=== PATIENT | female | born 1965 | race Caucasian/White ===

== ENCOUNTER 2017-06-13 02:34 | Outpatient (CLI) | payer BC ==
[~2017-06-13 02:34] MED LIST: CARV-50 PO; COU4T PO; FURO80TA87 PO; LISI40TA4 PO; TRAM50TA2 PO
== END 2017-06-13 23:59 | disposition home or self-care (01) ==
LOC: DIABETIC 02:34
PROVIDERS: ATTEND Internal Medicine Interventional Cardiology
DX: E66.01 Morbid (severe) obesity due to excess calories (principal); R03.0 Elevated blood-pressure reading, without diagnosis of hypertension; I50.9 Heart failure, unspecified
CPT/HCPCS: 97802

== ENCOUNTER 2018-07-09 13:23 | Emergency (ER) | payer BC ==
[~2018-07-09] VITALS: Ht 167.6 cm; Wt 154.6 kg
[2018-07-09 13:40] VITALS: BP 186/98
[2018-07-09] MEDS ORDERED: ondansetron 4mg rapidly disintigrating tab PO ONE (17:05)
[2018-07-09] MEDS ORDERED: ketorolac tromethamine 15mg/ml inj. IM ONE (17:05)
[2018-07-09 17:10] LABS: CLARITY,URINE CLEAR (Clear); COLOR,URINE YELLOW (Yellow); GLUCOSE, URINE NEGATIVE (Neg); KETONES,URINE NEGATIVE (Neg); LEUKOCYTE ESTERASE ,URINE NEGATIVE (Neg); NITRITES, URINE NEGATIVE (Neg); OCCULT BLOOD,URINE NEGATIVE (Neg); PROTEIN,URINE NEGATIVE (Neg); UROBILINOGEN,URINE 0.2 E.U/dL (0.2-1.0)
[2018-07-09 17:15] LABS: UA COLLECTION TYPE CLN CATCH MIDSTREAM
[2018-07-09] MEDS ORDERED: NAPR-56 PO (17:43)
[2018-07-09] MEDS ORDERED: CYCL-1 PO (17:43)
== END 2018-07-09 17:58 | disposition home or self-care (01) ==
LOC: ER 13:23
DX: S39.012A Strain of muscle, fascia and tendon of lower back, initial encounter (principal); R11.2 Nausea with vomiting, unspecified; I11.0 Hypertensive heart disease with heart failure; I50.9 Heart failure, unspecified; Z88.0 Allergy status to penicillin; Z88.2 Allergy status to sulfonamides; Z91.013 Allergy to seafood; Z79.01 Long term (current) use of anticoagulants; Z79.899 Other long term (current) drug therapy; X58.XXXA Exposure to other specified factors, initial encounter; Y93.89 Activity, other specified; Y92.89 Other specified places as the place of occurrence of the external cause; Y99.8 Other external cause status
CPT/HCPCS: 81003; 96372; 99283; J1885

== ENCOUNTER 2024-12-08 15:29 | Inpatient (IN) | payer BC, MEDICAID ==
[~2024-12-08] VITALS: Ht 167.6 cm; Wt 139.6 kg
[~2024-12-08 15:29] MED LIST changes: +CYCL-1 PO; +LISI40TA20 PO; -LISI40TA4 PO
--- NOTE | 2024-12-08 15:39 | ELECTROCARDIOGRAPH REPORT ---
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
--- NOTE | 2024-12-08 15:46 | Physician Documentation ---
History of Present Illness ~ Chief Complaint: Weakness Stated Complaint: WEAKNESS Time Seen by MD: 15:39 OK to notify your PCP?: Yes Primary Medical Doctor: ARLENE Source: patient, EMS, EMS notes reviewed Mode of Arrival: EMS Exam Limitations: no limitations HPI Chief Complaint: Generalized weakness, shortness for breath Caveat: None Independent Historians: Paramedics History of Present Illness: Patient is a 59-year-old woman with known atrial fibrillation comes in complaining of generalized weakness, dizziness and shortness a breath that has gotten progressively worse over the last three days. Patient was discharged from [facility] as an inpatient this last Friday. She had several medication changes including discontinuation of her amiodarone. Patient denies any chest pain. Patient is found to be in rapid atrial fibrillation with a heart rate in the 140s. Patient is followed by Dr. Galvez. Review of systems: All systems were reviewed and are negative except for what is indicated in the history of present illness. Past Medical History: Atrial fibrillation Past Surgical History: Social History: Medications: Reviewed as documented Nursing Notes Allergies: Reviewed as documented in Nursing Notes Medication Reconciliation Allergies: Coded Allergies: Penicillins (Verified Allergy, Severe, ANAPHYLAXIS, 05/09/15) Sulfa (Sulfonamide Antibiotics) (Verified Allergy, Severe, ANAPHYLAXIS, 05/09/15) cephalexin (Verified Allergy, Severe, ANAPHYLAXIS, 05/09/15) shellfish derived (Verified Allergy, Severe, 05/09/15) Scheduled Apixaban (Eliquis), 1 TAB PO BID, (Reported) Carvedilol (Carvedilol), 1 TAB PO BID, (Reported) Empagliflozin (Jardiance), 1 TAB PO DAILY, (Reported) Furosemide (Furosemide), 1 TAB PO DAILY, (Reported) Potassium Chloride (Klor-Con), 1 TAB PO DAILY, (Reported) Scheduled PRN Albuterol Sulfate/Budesonide (Airsupra 90-80 Mcg Inhaler), 2 PUFF IH Q4H PRN for SOB or wheezing, (Reported) Discontinued Medications Carvedilol* (Coreg*), 2 TABLET PO BID, (Reported) Discontinued Reason: patient no longer taking Cyclobenzaprine* (Cyclobenzaprine*), 1 TABLET PO NIGHTLY PRN for muscle spasms Discontinued Reason: patient no longer taking Furosemide* (Lasix*), 40 MG PO BID, (Reported) Discontinued Reason: patient no longer taking Lisinopril* (Lisinopril*), 10 MG PO BID, (Reported) Discontinued Reason: patient no longer taking Tramadol Hcl (Tramadol Hcl), 1-2 TABLET PO TID, (Reported) Discontinued Reason: patient no longer taking Warfarin Sodium* (Coumadin*), 1 TABLET PO DAILY, (Reported) Discontinued Reason: patient no longer taking Past Medical History Past Medical History: Congestive Heart Failure, Hypertension Past Surgical History: noncontributory Alcohol Use: None Drug Use: none Lives In: Home Review of Systems All Other Systems at this time: Reviewed and Negative ROS Patient denies any other acute symptoms other than above. All other systems are negative Physical Exam Vital Signs: RN Vital Signs have been reviewed: Yes, Temperature: 98.0, Source: Oral, Heart Rate: 148, Respiratory Rate: 21, BP: 161/103, Pulse Oximetry: 98, Weight: 145.000 Oxygen Flow Rate: 0 Physical Exam General Appearance: MODERATE DISTRESS, ACUTELY AND CHRONICALLY ILL-APPEARING, MORBIDLY OBESE HEENT: Normal OP, moist oral mucosa, PERRL, EOMI Neck: supple, normal ROM, trachea midline Pulmonary: TACHYPNEIC, UNABLE TO SPEAK IN FULL SENTENCES, CTA, BS equal Cardiac: TACHYCARDIC, IRREGULARLY IRREGULAR RHYTHM, no murmur, rub or gallop, GI: nondistended, soft, nontender, normal bowel sounds, no guarding, no rebound Extremities: normal ROM, no swelling, non-tender Skin: intact, dry, warm, no rashes Neuro: AAOx3, speech is clear, no focal motor weakness Psych: normal affect, good eye contact, no apparent hallucination, normal speech Progress Results/Orders Results/Orders Orders - RADHIKA CHAUDHARY MD Chest,Single View (12/08/24 15:35) Monitor (12/08/24 15:35) Saline Lock (12/08/24 15:35) Oxygen (12/08/24 15:35) Hs Troponin I W Calculations (12/08/24 17:35) Hs Troponin I W Calculations (12/08/24 18:35) Page Hospitalist (12/08/24 16:37) Fill Out Med Reconciliation (12/08/24 16:37) Completed Orders - RADHIKA CHAUDHARY MD Chest,Single View (12/08/24 15:35) Cbc/Diff (12/08/24 15:35) PBNP (12/08/24 15:35) Electrocardiogram (12/08/24 15:35) Hs Troponin I W Calculations (12/08/24 15:35) CMP (12/08/24 15:40) Propofol Inj (Diprivan Inj) (12/08/24 16:13) Electrocardiogram (12/08/24 16:34) Vital Signs 12/08/24 12/08/24 12/08/24 12/08/24 15:32 15:57 16:10 16:29 Temp 98.0 98.0 Pulse 148 143 126 Resp 21 16 18 24 B/P (MAP) 161/103 131/90 (104) 156/93 Pulse Ox 98 99 99 O2 Flow Rate 0 0 12/08/24 12/08/24 12/08/24 12/08/24 16:33 16:40 16:42 17:12 Pulse 88 83 82 84 Resp 29 26 11 10 B/P (MAP) 129/86 (100) 128/95 (106) 142/103 (116) Pulse Ox 97 98 96 98 O2 Delivery Room Air Nasal Cannula Room Air O2 Flow Rate 2.0 2.0 Laboratory Tests Test 12/08/24 15:51 12/08/24 17:50 White Blood Count 13.6 H Red Blood Count 5.01 Hemoglobin 14.4 Hematocrit 42.9 Mean Corpuscular Volume 85.7 Mean Corpuscular Hemoglobin 28.8 Mean Corpuscular Hemoglobin Concent 33.6 Red Cell Distribution Width 17.0 H Platelet Count 284 Mean Platelet Volume 8.4 Neutrophils (%) (Auto) 65.9 Lymphocytes (%) (Auto) 24.5 Monocytes (%) (Auto) 7.7 Eosinophils (%) (Auto) 0.9 Basophils (%) (Auto) 1.0 Neutrophils # (Auto) 9.0 H Lymphocytes # (Auto) 3.3 Monocytes # (Auto) 1.1 H Eosinophils # (Auto) 0.1 Basophils # (Auto) 0.1 CBC Comment Sodium Level 136 Potassium Level 4.6 Chloride Level 101 Carbon Dioxide Level 22.3 L Anion Gap 13 Blood Urea Nitrogen 37 H Creatinine 1.29 H Estimated GFR/1.73 m2 42 BUN/Creatinine Ratio 28.7 H Glucose Level 108 H Calcium Level 9.3 Total Bilirubin 2.1 H Aspartate Amino Transf (AST/SGOT) 40 H Alanine Aminotransferase (ALT/SGPT) 492 H Alkaline Phosphatase 91 Troponin I High Sensitivity 33 Pro-B-Type Natriuretic Peptide 23074 H Total Protein 6.7 Albumin 3.7 Globulin 3.0 Albumin/Globulin Ratio 1.2 Chemistry Comments Medical Decision Making Additional info obtained from: old records (No prior visits or medical records to review), family Findings Differential diagnosis includes but is not limited to: Acute coronary syndrome, congestive heart failure, atrial fibrillation, electrolyte abnormalities EKG independent interpretation: Performed at 3:36 p.m.. Atrial fibrillation, heart rate 128, leftward axis, LVH, incomplete right bundle-branch block Repeat EKG independent interpretation: Performed at 4:34 p.m.. Normal sinus rh ythm, heart rate 87, nonspecific IVCD, nonspecific ST segments Chest x-ray, single view, indication: Shortness a breath Independent interpretation: Cardiomegaly, pulmonary vascular congestion, normal mediastinum Laboratory data independent interpretation: CBC: Leukocytosis of 13.6 CMP: BUN and creatinine elevated at 37 and 1.29 respectively, elevated LFTs- total bili 2.1, AST 40, ALT 492 First troponin: 33 Pro BNP: 79104 Urinalysis: Emergency department course/medical decision-making: Patient presents with rapid atrial fibrillation. Patient is also having congestive heart failure. Case discussed with Dr. Funmi Galvez. He agrees with synchronized cardioversion. Patient was also scheduled as synchronized cardioversion at the end of the month with Dr. Galvez. Patient is provided written consent and verbal consent for procedural sedation using propofol for synchronized cardioversion. Patient tolerated the procedure well in his in now normal sinus rhythm. Consultation/communications: 5:45 p.m.: Case discussed with our resident hospitalist. He will evaluate the patient for admission. Departure Time of Disposition: 17:45 Disposition: 09 ADMITTED INPATIENT Admission Level of Care: PCU with Tele Impression: Primary Impression: Atrial fibrillation with rapid ventricular response Additional Impression: Acute congestive heart failure Qualified Codes: I50.9 - Heart failure, unspecified Referrals: NO PRIMARY CARE PROVIDER (PCP) Education Educated: Patient, Family Educated regarding: diagnosis, treatment Signature Scribe Signature: No scribe Attestation: No scribe RADHIKA CHAUDHARY MD Dec 08, 2024 15:46
--- NOTE | 2024-12-08 16:12 | RADIOLOGY REPORT ---
CHEST RADIOGRAPH Indication: CP Technique: Single frontal view of the chest was obtained COMPARISON: None FINDINGS: Lines and Tubes: None Lungs: Clear Pleura: No effusion. No pneumothorax. Cardiomediastinal contours: Cardiomegaly Bones: Unremarkable IMPRESSION: Cardiomegaly
[2024-12-08 16:22] LABS: MEAN PLATELET VOLUME 8.4 FL (7.4-10.4)
[2024-12-08 16:24] LABS: RED CELL DISTRIBUTION WIDTH 17.0 % (11.5-14.5)
[2024-12-08 16:31] LABS: CREATININE 1.29 MG/DL (0.40-0.90); TOTAL CARBON DIOXIDE 22.3 MMOL/L (24-32); eCRCL 45 ML/MIN; eGFR 42 ML/MIN
[2024-12-08 16:38] LABS: PRO BRAIN NATRIURETIC PEPTIDE 14806 PG/ML (0-125)
[2024-12-08] MEDS: propofol 10mg/ml 20ml vial IV ONE (16:38)
[2024-12-08] MEDS ORDERED: CARV3.1244 PO (16:55)
[2024-12-08] MEDS ORDERED: ALBU10.7 IH (16:55)
[2024-12-08] MEDS ORDERED: POTA-192 PO (16:55)
[2024-12-08] MEDS ORDERED: APIX5TAB3 PO (16:55)
[2024-12-08] MEDS ORDERED: FURO40TA4 PO (16:55)
[2024-12-08] MEDS ORDERED: EMPA10TA PO (16:55)
--- NOTE | 2024-12-08 16:56 | ELECTROCARDIOGRAPH REPORT ---
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
[2024-12-08] MEDS ORDERED: ondansetron/PF 4mg/2ml inj IV PRN (18:05)
[2024-12-08] MEDS ORDERED: magnesium Cl slow-release 64mg tablet PO PRN (18:05)
[2024-12-08] MEDS ORDERED: magnesium sulf-water 2g/50mL 50 ML IV PRN (18:05)
[2024-12-08] MEDS ORDERED: mag hydrox/Alum hydrox/simeth 30ml oral suspension PO PRN (18:05)
[2024-12-08] MEDS ORDERED: potassium Cl 20 mEq SR tablet PO PRN ×2 (18:05)
[2024-12-08] MEDS ORDERED: potassium Cl 40MEQ/1/2NS 520ml 520 ML IV PRN (18:05)
[2024-12-08] MEDS ORDERED: magnesium sulf-water 4G/100mL 100 ML IV PRN (18:05)
[2024-12-08] MEDS ORDERED: magnesium hydroxide 30ml (MOM) UD suspension PO PRN (18:05)
[2024-12-08] MEDS: PERFLUTREN PROTEIN-A MICROSPHR (Optison) 0.22 MG/ML 3ML VIAL IV ONE (18:33)
[2024-12-08 18:38] LABS: PHOSPHORUS 4.8 MG/DL (2.3-4.5)
[2024-12-08 18:45] LABS: INR 1.9 INR
--- NOTE | 2024-12-08 18:49 | HISTORY AND PHYSICAL-Residence ---
History & Physical Providers to CC Resident Creating Document: WOOJOEY OLEARY, RES ~ History of Present Illness Primary Medical Doctor: ARLENE Reason for Admit\Complaint: shortness of breath History of Present Illness 59-year-old female Jahaira capellan with a past medical history of hypertension, CHF, has come to the ED complaining of generalized weakness. The patient was admitted in [facility] a week ago complaining of shortness of breath for which she was treated and discharged. She returned back again today for the same. Her SOB has been progressively increasing since the last three days. Today it got to a point where she was not able to do her activities of daily living. SOB associated with night sweats, PND, nausea, vomiting. Patient denied any complaints of chest pain, palpitations, headache, abdominal pain, hemoptysis, burning micturition. The patient when came into the ED was in atrial fibrillation, heart rate-150, BP-140s, was soon converted back into sinus rhythm by cardioversion. Allergies: Coded Allergies: Penicillins (Verified Allergy, Severe, ANAPHYLAXIS, 05/09/15) Sulfa (Sulfonamide Antibiotics) (Verified Allergy, Severe, ANAPHYLAXIS, 05/09/15) cephalexin (Verified Allergy, Severe, ANAPHYLAXIS, 05/09/15) shellfish derived (Verified Allergy, Severe, 05/09/15) Home Medications Home Medications Active Reported Klor-Con (Potassium Chloride) 10 Meq Tab.prt.sr 1 Tab PO DAILY Jardiance (Empagliflozin) 10 Mg Tablet 1 Tab PO DAILY Furosemide 40 Mg Tablet 1 Tab PO DAILY Airsupra 90-80 Mcg Inhaler (Albuterol Sulfate/Budesonide) 90 Mcg-80 Mcg/Actuation Hfa.aer.ad 2 Puff IH Q4H PRN Carvedilol 3.125 Mg Tablet 1 Tab PO BID Eliquis (Apixaban) 5 Mg Tablet 1 Tab PO BID Past Medical History Past Medical History Hypertension CHF Benign tumor of the thyroid Patient allergic to sulfa drugs, penicillins, shellfish. Past Surgical History Surgical History Comment Knee replacement surgery both knees Past Social History Social History Comment Patient quit smoking 15 years ago before which he smoked for 20 years one pack per day Started vaping six months ago but quit in the month of September Alcohol -drinks socially No illicit drug abuse FAMILY HISTORY- Mother-stroke, hypertension Father-stroke, hypertension Alcohol Use: None Drug Use: None Lives In: Home ROS All Other Systems: Reviewed and Negative Exam Vitals: Vital Signs Date Time Temp Pulse Resp B/P (MAP) Pulse Ox O2 Delivery O2 Flow Rate FiO2 12/08/24 17:12 84 10 142/103 (116) 98 12/08/24 16:42 Room Air 12/08/24 16:40 2.0 12/08/24 16:10 98.0 General: Constitutional: No fever, generalised weakness. no change in appetite/weight HEENT: No blurring of the vision, No sore throat, epistaxis, tinnitus Cardiovascular: No chest pain while examining, no palpitations, 2+ pedal edema present. Respiratory: sob present, cough present,no hemoptysis Gastrointestinal: nausea, vomiting. No abdominal pain, No diarrhea, constipation, melena. Genitourinary: No frquency, urgency, incontinence, nocturia. No dysuria, hematuria Musculoskeletal: No arthralgia, myalgia Endocrine: no polydipsia, polyuria. No heat or cold intolerance Neurologic: No headache, vertigo. No weakness, numbness or tingling of extremities Psychiatric: No hallucinations/delusions, no anhedonia, no suicidal ideation Hematologic: No bleeding or bruises Diagnostic Data Last Recorded Lab Results: 12/08/24 1551 12/08/24 1551 Diagnostic Data: Laboratory Tests Test 12/08/24 18:27 Prothrombin Time 18.0 SECONDS (9.0-12.0) H INR International Normalized Ratio 1.9 INR Coagulation Comments Advance Care Planning Advanced Care plannin - 30 Minutes (Full code) Additional Plan Acute exacerbation of congestive heart failure- Pro BNP elevated Ordered echocardiogram Patient on Lasix-furosemide 40 mg b.i.d. IV On GDMT protocol-spironolactone 12.5 mg p.o. daily, empagliflozin 10 mg p.o. daily, Entresto 0.5 b.i.d. p.o. Atrial fibrillation- Initially presented in AFib but was converted back into sinus rhythm With cardioversion by the ED physician. Dr. Galvez was informed Patient currently in sinus rhythm Eliquis 5 mg b.i.d. Carvedilol 3.125 mg b.i.d. 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 Condition improved, was maintaining normal saturations on room air without oxygen. UTI with underlying nonobstructive renal calculus- Urine analysis positive for UTI Recently detected with renal calculus for which she is being treated by her outpatient script coordinator. Patient on ciprofloxacin 400 mg b.i.d. Code Status: Full code DVT Prophylaxis: Eliquis Analgesia/Sedation: Acetaminophen Nutrition: Heart healthy diet PT: Ordered Prognosis: Guarded Disposition: Patient admitted for generalized weakness and AFib which was converted back into sinus rhythm by cardioversion. Patient on close telemetry monitoring Joey Moscoso MD Internal Medicine Resident PGY-1 Date of Service: Dec 09, 2024 Billing Provider: ELPIDIO MENDOZA MD,JOEY, RES Dec 08, 2024 18:49
[2024-12-08 19:48] LABS: CREATININE 1.26 MG/DL (0.40-0.90); eCRCL 46 ML/MIN; eGFR 44 ML/MIN
[2024-12-08] MEDS: docusate sod 100mg capsule PO SCH (20:00)
[2024-12-08] MEDS ORDERED: sacubitril/valsartan 24mg-26mg tablet PO SCH (20:00)
[2024-12-08] MEDS: K and/or MAG REPLACEMENT MC SCH (20:00)
[2024-12-08 21:44] LABS: UA COLLECTION TYPE VOIDED
[2024-12-08 21:50] VITALS: BP 129/93; PULSE 99; RESP 17; TEMP 97.9; O2SAT 99
[2024-12-08 21:53] LABS: MUCUS STRANDS FEW /LPF (Neg); SQUAMOUS EPITHELIAL CELL,UR FEW /LPF (FEW)
[2024-12-08 21:56] LABS: CREATININE,URINE RANDOM 152.0 MG/DL; UA UREA RANDOM 677.0 MG/DL
[2024-12-08 22:00] VITALS: BP 119/71; PULSE 67; RESP 19; TEMP 97.4; O2SAT 97
[2024-12-08] MEDS ORDERED: albuterol 2.5 MG/3 ML nebule NEB PRN (22:10)
[2024-12-08 22:16] VITALS: PULSE 97; RESP 22; O2SAT 99
[2024-12-08] MEDS: sacubitril/valsartan 24mg-26mg tablet PO SCH (23:09)
[2024-12-09] VITALS (10 sets, daily range): BP systolic 90–118; BP diastolic 58–81; PULSE 52–82; RESP 15–22; TEMP 97.1–98.5; O2SAT 95–98
[2024-12-09 06:14] LABS: MEAN PLATELET VOLUME 8.1 FL (7.4-10.4); RED CELL DISTRIBUTION WIDTH 17.0 % (11.5-14.5)
[2024-12-09 06:25] LABS: CHOL/HDL RATIO 3.9 (0.00-4.99); CREATININE 1.29 MG/DL (0.40-0.90); LDL CHOLESTEROL 88 MG/DL (50-100); TOTAL CARBON DIOXIDE 28.8 MMOL/L (24-32); eCRCL 45 ML/MIN; eGFR 42 ML/MIN
[2024-12-09] MEDS: EMPAGLIFLOZIN 10 MG TABLET PO SCH (08:29)
[2024-12-09] MEDS: ciprofloxacin lact 400MG/200ML 200 ML IV SCH (09:43)
--- NOTE | 2024-12-09 19:03 | PROGRESS NOTE- Residence ---
Progress Note - Resident Providers to CC Resident Creating Document: MARK SIMPSON IRAIDA ~ Antibiotic Timeout Antibiotic Ordered?: Yes Subjective Patient seen and examined at the bedside today. Patient reports that her breathing is better when compared to yesterday prior to her arrival in the ER. She currently denies any shortness of breath, chest pain, palpitations, nausea, vomiting. No acute overnight events reported. Objective Vital Signs Date Time Temp Pulse Resp B/P (MAP) Pulse Ox O2 Delivery O2 Flow Rate FiO2 12/09/24 15:00 98.4 74 18 90/58 (69) 97 Room Air 12/09/24 08:00 0 21 Result Diagram: 12/09/24 0542 12/09/2442 General: Morbidly obese female. No acute distress. HEENT: Conjunctiva pink, Sclera clear, Mucus Membranes moist. Neck: Supple without masses and tenderness. Resp: Unlabored. Coarse breath sounds heard. No wheezing or rhonchi heard. Heart: Regular Rate and rhythm, normal S1 and S2 without murmur, rub or gallop. Abdomen: Soft and non tender no organomegaly Extremities: Bilateral 1+ lower extremity edema present. Skin: Warm and dry. Psychiatric: Affect normal. Neurology: Cranial nerves 2-12 intact. No focal motor or sensory deficits. Coagulation Studies Laboratory Tests Test 12/08/24 18:27 Prothrombin Time 18.0 SECONDS (9.0-12.0) H INR International Normalized Ratio 1.9 INR Coagulation Comments Assessment Assessment 59-year-old female with past medical history of CHF, hypertension, AFib, PE, DVT presented to the ED with chief complaint of worsening shortness of with a. She is admitted in the hospital for the evaluation and management of AFib with RVR, acute exacerbation of congestive heart failure with reduced ejection fraction. Plan Plan Acute hypoxemic respiratory failure Acute exacerbation of congestive heart failure with a reduced ejection fraction NYHA class three, aha stage four Preliminary report of the patient's echocardiography shows an ejection fraction of 15-20%. Patient is started on IV Lasix 40 b.i.d. Strict input and output monitoring. The the patient's junior web developer Dr. Galvez has been consulted. Appreciate recommendations. Restarted on GDMT Entresto, Jardiance, carvedilol, spironolactone. The patient is comfortable on room air. Atrial fibrillation with rapid ventricular rate The patient underwent a cardioversion in the ER yesterday as per Dr. Peña's recommendation. She has a converted back to sinus rhythm. Occasional PVCs are noted on the telemetry monitoring. Continue telemetry. Restarted the patient on carvedilol 3.125 mg b.i.d.. Restarted Eliquis 5 mg p.o. b.i.d. UTI Hematuria Nephrolithiasis The patient reported that she has been having significant hematuria since September when she was started on Eliquis. She went to a urologist Dr. Guthrie last week in view of her renal stones. Per the patient Dr. Guthrie reported that she has a large stone and requires procedure but is not a suitable candidate in view of her low ejection fraction. Started the patient on IV ciprofloxacin 400 mg b.i.d.. The patient reports severe allergic reaction such as the swelling of her tongue and lips with cephalosporins. We will follow up with the urine cultures. The patient's hematuria has a improved significantly. We will continue to monitor closely. History of DVT and PE Restarted Eliquis 5 mg p.o. b.i.d. DIAMOND secondary to renal tubular stasis Started the patient on IV Lasix. We will closely monitor the patient's renal function. CODE STATUS: Full code DVT prophylaxis: Eliquis GI prophylaxis: None Diet: Heart healthy diet Disposition: Continue medical management. Anticipate discharge home in the next 24-48 hours. Mark Simpson MD Internal Medicine Resident, PGY-3 Date of Service: Dec 09, 2024 Billing Provider: ELPIDIO MENDOZA MD,MARK FAITH, RES Dec 09, 2024 19:03
[2024-12-10] VITALS (12 sets, daily range): BP systolic 92–111; BP diastolic 63–77; PULSE 57–80; RESP 13–24; TEMP 97.1–97.8; O2SAT 96–99
[2024-12-10 06:26] LABS: MEAN PLATELET VOLUME 8.1 FL (7.4-10.4); RED CELL DISTRIBUTION WIDTH 16.7 % (11.5-14.5)
[2024-12-10 06:54] LABS: CREATININE 0.98 MG/DL (0.40-0.90); TOTAL CARBON DIOXIDE 28.0 MMOL/L (24-32); eCRCL 59 ML/MIN; eGFR 58 ML/MIN
--- NOTE | 2024-12-10 09:21 | CARDIOLOGY REPORT ---
APPROVED REPORT EXAM: Comprehensive 2D, Doppler, and color-flow Echocardiogram. Patient Location: [facility] Blood Pressure: 112/81 mmHg Heart Rate: 76 bpm Indications Congestive Heart Failure Shortness of Breath Atrial Fibrillation ProBNP: 95023 BREAD JOCKEY: Kaela Galvez MD Previous ECHO: 10/04/24, [facility], EF: 10-15; mod RVE; mod MR; mod-sev TR; sev JOVANI 2D Dimensions LA Diam4.9 cm IVSd 1.5 (0.7-1.1cm) LVDd 6.6 cm PWd 1.3 (0.7-1.1cm) IVSs 1.5 (0.8-1.2cm) LVDs 6.0 (2.5-4.0cm) PWs 1.8 (0.8-1.2cm) LVOT Diameter 2.30 (1.8-2.4cm) LVEF(%) 18.2 (>50%) Ao Asc Diam.3.44 cm IVC 22.48 mmFS (%) 8.4 % SV 34.3 ml CO 2.7 L/min M-Mode Dimensions Left Atrium(MM) 4.71 (2.5-4.0cm) Aortic Root 3.60 (2.2-3.7cm) Aortic Cusp Exc 1.49 (1.5-2.0cm) MV EPSS 1.9 (<0.5cm) Aortic Valve AoV Peak Rishi. 154.2 cm/s AoV VTI 25.3 cm AO Peak GR. 9.5 mmHg AO Mean GR. 6 mmHg LVOT VTI 22.80 cm LVOT Peak Rishi. 118.8 cm/s JOSE C(VTI)/BSA 3.73 cm2/m2 JOSE C (VTI) 3.73 cm2 Mitral Valve MV E Velocity 93.0 cm/s MV Peak Gr. 4 mmHg MV DECEL TIME 156 ms MV A Velocity 29.2 cm/s MV PHT 60 ms E/A Ratio 3.2 MVA (PHT) 3.67 cm2 MV WFwa816.1 cm/s TDI Lateral E' P. V9.59 cm/s E/Lateral E' 9.7 Pulmonary Valve PAEDP14.20 mmHg Tricuspid Valve TR P. Velocity 320 cm/s RAP ESTIMATE 10 mmHg TR Peak Gr. 41 mmHg RVSP 51 mmHg LEFT VENTRICLE Left ventricle is moderately dilated with severely decreased function. Moderate concentric hypertroph y. LVEF is 15-20%. Unchanged from previous echo. RIGHT VENTRICLE Right ventricle is mild to moderately dilated with reduced function. Elevated right heart pressures w ith an RVSP of 51 mmHg. ATRIA Left atrium is moderately dilated. AORTIC VALVE Trileaflet AV appears mildly sclerotic without stenosis. Trace insufficiency. MITRAL VALVE Mitral valve leaflets are thickened with mild annular calcification. No stenosis. Mild regurgitation. TRICUSPID VALVE The tricuspid valve is normal in structure with mild to moderate regurgitation. PULMONIC VALVE The pulmonary valve is normal in structure with physiologic insufficiency. GREAT VESSELS The aortic root is normal in size. The ascending aorta is normal in size. IVC is dilated and collapse s less than 50% with inspiration. PERICARDIUM Normal pericardium. No effusion. Pleural effusion present. Other Information Study Quality: Adequate Conclusion Left ventricle is moderately dilated with severely decreased function. Moderate concentric hypertrop hy. LVEF is 15-20%. Unchanged from previous echo. Right ventricle is mild to moderately dilated with reduced function. Elevated right heart pressures with an RVSP of 51 mmHg. Left atrium is moderately dilated. Trileaflet AV appears mildly sclerotic without stenosis. Trace insufficiency. Mitral valve leaflets are thickened with mild annular calcification. No stenosis. Mild regurgitatio n. The tricuspid valve is normal in structure with mild to moderate regurgitation. Normal pericardium. No effusion.
--- NOTE | 2024-12-10 19:41 | PROGRESS NOTE- Residence ---
Progress Note - Resident Providers to CC Resident Creating Document: JOEY MOSCOSO RES ~ Antibiotic Timeout Antibiotic Ordered?: No Subjective Patient seen and examined at the bedside today. Patient reports of developing a rash on her body associated with itching and shivering, due to ciprofloxacin. reports that her breathing is better today . Does not complain of any shortness of breath, chest pain, palpitations, nausea, vomiting. Objective Vital Signs Date Time Temp Pulse Resp B/P (MAP) Pulse Ox O2 Delivery O2 Flow Rate FiO2 12/10/24 15:00 97.5 80 18 102/69 (80) 96 Room Air 12/10/24 08:13 0 21 Result Diagram: 12/10/2451912/10/24519 General: Morbidly obese female. No acute distress. HEENT: Conjunctiva pink, Sclera clear, Mucus Membranes moist. Neck: Supple without masses and tenderness. Resp: Unlabored. Coarse breath sounds heard. No wheezing or crepts heard. Heart: Regular Rate and rhythm, normal S1 and S2 without murmur, rub or gallop. Abdomen: Soft and non tender no organomegaly Extremities: Bilateral 1+ lower extremity edema present. Skin: Warm and dry with mild rash. Psychiatric: Affect normal. Neurology: Cranial nerves 2-12 intact. No focal motor or sensory deficits. Coagulation Studies Laboratory Tests Test 12/08/24 18:27 Prothrombin Time 18.0 SECONDS (9.0-12.0) H INR International Normalized Ratio 1.9 INR Coagulation Comments Assessment Assessment 59-year-old female with past medical history of CHF, hypertension, AFib, PE, DVT presented to the ED with chief complaint of worsening shortness of with a. She is admitted in the hospital for the evaluation and management of AFib with RVR, acute exacerbation of congestive heart failure with reduced ejection fraction. Plan Plan Acute hypoxemic respiratory failure Acute exacerbation of congestive heart failure with a reduced ejection fraction NYHA class three, aha stage four Preliminary report of the patient's echocardiography shows an ejection fraction of 15-20%. Patient is started on IV Lasix 40 b.i.d. Strict input and output monitoring. The patient's power bender operator Dr. Galvez has been consulted. Appreciate recommendations. Restarted on GDMT Entresto, Jardiance, carvedilol, spironolactone. The patient is comfortable on room air. Spirometry and flutter. Atrial fibrillation with rapid ventricular rate The patient underwent a cardioversion in the ER yesterday as per Dr. Peña's recommendation. She has a converted back to sinus rhythm. Occasional PVCs are noted on the telemetry monitoring. Continue telemetry. Restarted the patient on carvedilol 3.125 mg b.i.d.. Restarted Eliquis 5 mg p.o. b.i.d. Asymptomatic bacteriuria Hematuria Nephrolithiasis The patient reported that she has been having significant hematuria since September when she was started on Eliquis. She went to a urologist Dr. Guthrie last week in view of her renal stones. Per the patient Dr. Guthrie reported that she has a large stone and requires procedure but is not a suitable candidate in view of her low ejection fraction. Started the patient on IV ciprofloxacin 400 mg b.i.d., patient reports developing a skin rash with itching and shivering. Discontinued ciprofloxacin. The patient also reports severe allergic reaction such as the swelling of her tongue and lips with cephalosporins. Currently giving probiotics with fluid management. No antibiotics required. We will follow up with the urine cultures. The patient's hematuria has a improved significantly. We will continue to monitor closely. History of DVT and PE Restarted Eliquis 5 mg p.o. b.i.d. DIAMOND secondary to renal tubular stasis Started the patient on IV Lasix. We will closely monitor the patient's renal function. CODE STATUS: Full code DVT prophylaxis: Eliquis GI prophylaxis: None Diet: Heart healthy diet Disposition: Continue medical management. Discontinued the patient on ciprofloxacin as she developed rash itching and shivering. Anticipate discharge home in the next 24-48 hours. Joey Moscoso MD Internal Medicine Resident, PGY-1 Date of Service: Dec 10, 2024 Billing Provider: ELPIDIO MENDOZA MD,JOEY, RES Dec 10, 2024 19:41
[2024-12-10] MEDS: lactobacillus rhamnosus 10,000 MMU CELLS/CAPSULE PO SCH (19:42)
[2024-12-10 22:21] LABS: LEUKOCYTE ESTERASE ,URINE SMALL (Neg); NITRITES, URINE NEGATIVE (Neg); OCCULT BLOOD,URINE MODERATE (Neg)
[2024-12-10 22:28] LABS: UA COLLECTION TYPE NON-SPECIFIED
[2024-12-10 22:29] LABS: SQUAMOUS EPITHELIAL CELL,UR FEW /LPF (FEW)
[2024-12-10 22:30] LABS: WBC CLUMPS,URINE FEW /HPF (NEGATIVE)
[2024-12-11] VITALS (10 sets, daily range): BP systolic 86–106; BP diastolic 44–60; PULSE 61–72; RESP 11–20; TEMP 96.9–98.6; O2SAT 95–99
[2024-12-11 05:53] LABS: MEAN PLATELET VOLUME 7.8 FL (7.4-10.4); RED CELL DISTRIBUTION WIDTH 16.8 % (11.5-14.5)
[2024-12-11 06:09] LABS: CREATININE 0.95 MG/DL (0.40-0.90); TOTAL CARBON DIOXIDE 32.6 MMOL/L (24-32); eCRCL 60 ML/MIN; eGFR 60 ML/MIN
--- NOTE | 2024-12-11 17:11 | PROGRESS NOTE- Residence ---
Progress Note - Resident Providers to CC Resident Creating Document: JOEY MOSCOSO RES ~ Antibiotic Timeout Antibiotic Ordered?: No Subjective Patient seen and examined at the bedside today. Patient feels well, does not complain of any itching , shivering, reports that her breathing is better today . The patient is hypotensive however spironolactone was held and Entresto has been discontinued and the patient is started on low-dose lisinopril. No shortness of breath, chest pain, palpitations, nausea, vomiting. Objective Vital Signs Date Time Temp Pulse Resp B/P (MAP) Pulse Ox O2 Delivery O2 Flow Rate FiO2 12/11/24 08:07 72 16 95 Room Air* 0 21 12/11/24 02:00 97.8 86/44 (58) Result Diagram: 12/11/24 0512 12/11/24 05 General: Morbidly obese female. No acute distress. HEENT: Conjunctiva pink, Sclera clear, Mucus Membranes moist. Neck: Supple without masses and tenderness. Resp: Unlabored. Coarse breath sounds heard. No wheezing or crepts heard. Heart: Regular Rate and rhythm, normal S1 and S2 without murmur, rub or gallop. Abdomen: Soft and non tender no organomegaly Extremities: Bilateral 1+ lower extremity edema present. Skin: Warm and dry Psychiatric: Affect normal. Neurology: Cranial nerves 2-12 intact. No focal motor or sensory deficits. Coagulation Studies Laboratory Tests Test 12/08/24 18:27 Prothrombin Time 18.0 SECONDS (9.0-12.0) H INR International Normalized Ratio 1.9 INR Coagulation Comments Assessment Assessment 59-year-old female with past medical history of CHF, hypertension, AFib, PE, DVT presented to the ED with chief complaint of worsening shortness of with a. She is admitted in the hospital for the evaluation and management of AFib with RVR, acute exacerbation of congestive heart failure with reduced ejection fraction. Plan Plan Acute hypoxemic respiratory failure Acute exacerbation of congestive heart failure with a reduced ejection fraction NYHA class three, aha stage four Preliminary report of the patient's echocardiography shows an ejection fraction of 15-20%. Patient is started on IV Lasix 40 b.i.d. Strict input and output monitoring. The patient's auto body mechanic Dr. Galvez has been consulted. Appreciate recommendations. Restarted on GDMT Entresto, Jardiance, carvedilol, spironolactone. The patient is comfortable on room air. Spirometry and flutter. 12/11 spironolactone was held and Entresto was discontinued due to hypotension Atrial fibrillation with rapid ventricular rate Patient recording low blood pressures-stopped Entresto. Started on lisinopril 5 mg daily p.o. We will continue to monitor blood pressures regularly. The patient underwent a cardioversion in the ER yesterday as per Dr. Peña's recommendation. She has a converted back to sinus rhythm. Occasional PVCs are noted on the telemetry monitoring. Continue telemetry. Asymptomatic bacteriuria Hematuria Nephrolithiasis The patient reported that she has been having significant hematuria since September when she was started on Eliquis. She went to a urologist Dr. Guthrie last week in view of her renal stones. Per the patient Dr. Guthrie reported that she has a large stone and requires procedure but is not a suitable candidate in view of her low ejection fraction. Started the patient on IV ciprofloxacin 400 mg b.i.d., patient reports developing a skin rash with itching and shivering. Discontinued ciprofloxacin. The patient also reports severe allergic reaction such as the swelling of her tongue and lips with cephalosporins. Currently giving probiotics with fluid management. No antibiotics required. We will follow up with the urine cultures. The patient's hematuria has a improved significantly. We will continue to monitor closely. History of DVT and PE Restarted Eliquis 5 mg p.o. b.i.d. DIAMOND possibly secondary to renal tubular stasis Started the patient on IV Lasix. We will closely monitor the patient's renal function. CODE STATUS: Full code DVT prophylaxis: Eliquis GI prophylaxis: None Diet: Heart healthy diet Disposition: Continue medical management. Patient is recording low blood pressures, stopped Entresto and started on low-dose lisinopril. Anticipate discharge home in the next 24-48 hours. Joey Moscoso MD Internal Medicine Resident, PGY-1 Date of Service: Dec 11, 2024 Billing Provider: TIKA MILLS DO Common Visit Codes: [id number] INP/OBS CARE(HIGH) JOEY MOSCOSO, RES Dec 11, 2024 17:11 TIKA MILLS DO Dec 11, 2024 19:22
[2024-12-12] VITALS (8 sets, daily range): BP systolic 99–118; BP diastolic 50–74; PULSE 65–69; RESP 13–21; TEMP 97–98.4; O2SAT 96–100
[2024-12-12 06:09] LABS: MEAN PLATELET VOLUME 7.9 FL (7.4-10.4); RED CELL DISTRIBUTION WIDTH 16.6 % (11.5-14.5)
[2024-12-12 06:26] LABS: CREATININE 0.77 MG/DL (0.40-0.90); TOTAL CARBON DIOXIDE 31.2 MMOL/L (24-32); eCRCL 75 ML/MIN; eGFR 77 ML/MIN
--- NOTE | 2024-12-12 17:32 | PROGRESS NOTE- Residence ---
Progress Note - Resident Providers to CC Resident Creating Document: JOEY MOSCOSO RES ~ Antibiotic Timeout Antibiotic Ordered?: No Subjective Patient seen and examined at the bedside today. Patient feels well, does not complain of any itching , shivering, reports that her breathing is better today . The patient is hypotensive however spironolactone was held and Entresto has been discontinued and the patient is started on low-dose lisinopril. No shortness of breath, chest pain, palpitations, nausea, vomiting. Objective Vital Signs Date Time Temp Pulse Resp B/P (MAP) Pulse Ox O2 Delivery O2 Flow Rate FiO2 12/12/24 15:00 98.1 65 21 106/50 (68) 97 Room Air 12/11/24 23:19 24 12/11/24 08:07 0 Result Diagram: 12/12/24 0535 12/12/24 0535 General: Morbidly obese female. No acute distress. HEENT: Conjunctiva pink, Sclera clear, Mucus Membranes moist. Neck: Supple without masses and tenderness. Resp: Unlabored. Coarse breath sounds heard. No wheezing or crepts heard. Heart: Regular Rate and rhythm, normal S1 and S2 without murmur, rub or gallop. Abdomen: Soft and non tender no organomegaly Extremities: Bilateral 1+ lower extremity edema present. Skin: Warm and dry Psychiatric: Affect normal. Neurology: Cranial nerves 2-12 intact. No focal motor or sensory deficits. Coagulation Studies Laboratory Tests Test 12/08/24 18:27 Prothrombin Time 18.0 SECONDS (9.0-12.0) H INR International Normalized Ratio 1.9 INR Coagulation Comments Assessment Assessment 59-year-old female with past medical history of CHF, hypertension, AFib, PE, DVT presented to the ED with chief complaint of worsening shortness of with a. She is admitted in the hospital for the evaluation and management of AFib with RVR, acute exacerbation of congestive heart failure with reduced ejection fraction. Plan Plan Acute hypoxemic respiratory failure Acute exacerbation of congestive heart failure with a reduced ejection fraction NYHA class three, aha stage four Preliminary report of the patient's echocardiography shows an ejection fraction of 15-20%. Patient is started on IV Lasix 40 b.i.d. Strict input and output monitoring. The patient's drug safety scientist Dr. Galvez has been consulted. Appreciate recommendations. The patient is comfortable on room air. Spirometry and flutter. 12/11 spironolactone was held and Entresto was discontinued due to hypotension 12/12- patient not on spironolactone and Entresto. We will continue to monitor her blood pressure. Atrial fibrillation with rapid ventricular rate We will continue to monitor blood pressures regularly. The patient underwent a cardioversion in the ER yesterday as per Dr. Peña's recommendation. She has a converted back to sinus rhythm. Occasional PVCs are noted on the telemetry monitoring. Continue telemetry. Asymptomatic bacteriuria Hematuria Nephrolithiasis The patient reported that she has been having significant hematuria since September when she was started on Eliquis. She went to a urologist Dr. Guthrie last week in view of her renal stones. Per the patient Dr. Guthrie reported that she has a large stone and requires procedure but is not a suitable candidate in view of her low ejection fraction. Started the patient on IV ciprofloxacin 400 mg b.i.d., patient reports developing a skin rash with itching and shivering. Discontinued ciprofloxacin. The patient also reports severe allergic reaction such as the swelling of her tongue and lips with cephalosporins. Currently giving probiotics with fluid management. No antibiotics required. We will follow up with the urine cultures. The patient's hematuria has a improved significantly. We will continue to monitor closely. History of DVT and PE Restarted Eliquis 5 mg p.o. b.i.d. DIAMOND possibly secondary to renal tubular stasis Started the patient on IV Lasix. We will closely monitor the patient's renal function. CODE STATUS: Full code DVT prophylaxis: Eliquis GI prophylaxis: None Diet: Heart healthy diet Disposition: Continue medical management. Patient is recording low blood pressures, stopped Entresto and started on low-dose lisinopril. Anticipate discharge home in the next 24-48 hours. Joey Moscoso MD Internal Medicine Resident, PGY-1 Date of Service: Dec 12, 2024 Billing Provider: TIKA MILLS DO Common Visit Codes: [id number] INP/OBS CARE(HIGH) JOEY MOSCOSO, RES Dec 12, 2024 17:32 TIKA MILLS DO Dec 12, 2024 20:09
[2024-12-13 02:00] VITALS: BP 121/75; PULSE 90; RESP 18; TEMP 97.8; O2SAT 97
[2024-12-13 06:00] VITALS: BP 139/69; PULSE 69; RESP 20; TEMP 97.8; O2SAT 98
[2024-12-13 06:15] LABS: MEAN PLATELET VOLUME 7.6 FL (7.4-10.4); RED CELL DISTRIBUTION WIDTH 16.6 % (11.5-14.5)
[2024-12-13 06:47] LABS: CREATININE 0.76 MG/DL (0.40-0.90); TOTAL CARBON DIOXIDE 29.9 MMOL/L (24-32); eCRCL 76 ML/MIN; eGFR 78 ML/MIN
[2024-12-13 08:00] VITALS: RESP 18; O2SAT 98
[2024-12-13 08:19] VITALS: PULSE 70; RESP 24; O2SAT 94
[2024-12-13] MEDS ORDERED: LISI5TAB22 PO (11:17)
[2024-12-13] MEDS ORDERED: SPIR25TA PO (11:17)
[2024-12-13 11:21] VITALS: BP_SYST 106; PULSE 67
[2024-12-13] MEDS ORDERED: ALBU10.7 IH (16:22)
[2024-12-13] MEDS ORDERED: EMPA10TA PO (16:22)
[2024-12-13] MEDS ORDERED: COR3.125T PO (16:22)
[2024-12-13] MEDS ORDERED: APIX5TAB3 PO (16:22)
[2024-12-13] MEDS ORDERED: FURO40TA4 PO (16:22)
--- NOTE | 2024-12-13 18:44 | DISCHARGE SUMMARY-Residence ---
Discharge Summary Providers to CC Resident Creating Document: QUINNSAMUELFunmi FLOREZ, RES ~ Discharge Summary Admission Diagnosis: Acute exacerbation of CHF, AFib with RVR Hospital Course DATE OF ADMISSION: DATE OF DISCHARGE: Condition on DC: Stable Discharge Summary: Laboratory Tests Test 12/12/24 05:35 12/13/24 05:11 White Blood Count 9.0 X10'3 7.7 X10'3 Red Blood Count 4.76 X10'6 4.74 X10'6 Hemoglobin 13.4 g/dl 13.4 g/dl Hematocrit 40.8 % 40.6 % Mean Corpuscular Volume 85.7 FL 85.7 FL Mean Corpuscular Hemoglobin 28.2 PG 28.2 PG Mean Corpuscular Hemoglobin Concent 32.9 g/dL 32.9 g/dL Red Cell Distribution Width 16.6 % 16.6 % Platelet Count 282 X10'3 262 X10'3 Mean Platelet Volume 7.9 FL 7.6 FL Neutrophils (%) (Auto) 60.7 % 61.1 % Lymphocytes (%) (Auto) 23.6 % 24.8 % Monocytes (%) (Auto) 12.0 % 10.2 % Eosinophils (%) (Auto) 2.6 % 3.1 % Basophils (%) (Auto) 1.1 % 0.8 % Neutrophils # (Auto) 5.5 X10'3 4.7 X10'3 Lymphocytes # (Auto) 2.1 X10'3 1.9 X10'3 Monocytes # (Auto) 1.1 X10'3 0.8 X10'3 Eosinophils # (Auto) 0.2 X10'3 0.2 X10'3 Basophils # (Auto) 0.1 X10'3 0.1 X10'3 CBC Comment Sodium Level 137 MMOL/L 140 MMOL/L Potassium Level 3.7 MMOL/L 4.1 MMOL/L Chloride Level 100 MMOL/L 103 MMOL/L Carbon Dioxide Level 31.2 MMOL/L 29.9 MMOL/L Anion Gap 6 7 Blood Urea Nitrogen 19 MG/DL 15 MG/DL Creatinine 0.77 MG/DL 0.76 MG/DL Estimated GFR/1.73 m2 77 ML/MIN 78 ML/MIN BUN/Creatinine Ratio 24.7 19.7 Glucose Level 87 MG/DL 84 MG/DL Calcium Level 8.6 MG/DL 8.8 MG/DL Magnesium Level 1.9 MG/DL 2.2 MG/DL Total Bilirubin 1.7 MG/DL 1.5 MG/DL Aspartate Amino Transf (AST/SGOT) 17 U/L 21 U/L Alanine Aminotransferase (ALT/SGPT) 170 U/L 140 U/L Alkaline Phosphatase 76 IU/L 79 IU/L Total Protein 5.9 G/DL 5.9 G/DL Albumin 3.1 G/DL 3.0 G/DL Globulin 2.8 G/DL 2.9 G/DL Albumin/Globulin Ratio 1.1 1.0 Chemistry Comments Date of Service: Dec 13, 2024 Billing Provider: ELPIDIO MENDOZA MD, SOWMYA MANJARI, RES Dec 13, 2024 18:44
== END 2024-12-13 15:10 | disposition home health service (06) | DRG 194 ==
LOC: ER 15:30 → ED HOLD 16:57 → PCU 3S 21:52
PROVIDERS: ADMIT Family Medicine; ATTEND Family Medicine
PROC: 5A2204Z Restoration of Cardiac Rhythm, Single (ICD-10-PCS; principal; 2024-12-08)
DX: I11.0 Hypertensive heart disease with heart failure (principal); J96.01 Acute respiratory failure with hypoxia; N17.0 Acute kidney failure with tubular necrosis; I50.23 Acute on chronic systolic (congestive) heart failure; N39.0 Urinary tract infection, site not specified; N20.0 Calculus of kidney; I48.91 Unspecified atrial fibrillation; Z79.899 Other long term (current) drug therapy; Z88.0 Allergy status to penicillin; Z88.2 Allergy status to sulfonamides; Z86.711 Personal history of pulmonary embolism; Z86.718 Personal history of other venous thrombosis and embolism
CPT/HCPCS: 36415; 71045; 80053; 80061; 80076; 81001; 82565; 82570; 83036; 83735; 83880; 84100; 84132; 84300; 84439; 84443; 84484; 84540; 85025; 85610; 87081; 87088; 92960; 93005; 93306; 94660; 94760; 97116; 97161; 97530; 99285; A4620; A6258; A6449; G0378; J0744; J1938; J7030; Q0163

== ENCOUNTER 2024-12-27 13:33 | Inpatient (IN) | payer MEDICAID ==
[2024-12-27] VITALS (7 sets, daily range): BP systolic 107–150; BP diastolic 69–81; PULSE 72–86; RESP 15–24; TEMP 97.3–97.9; O2SAT 96–99
[~2024-12-27] VITALS: Ht 167.6 cm; Wt 143.0 kg
[~2024-12-27 13:33] MED LIST changes: +ALBU10.7 IH; +APIX5TAB3 PO; -CARV-50 PO; +CARV3.1244 PO; +COR3.125T PO; -COU4T PO; -CYCL-1 PO; +EMPA10TA PO; +FURO40TA4 PO; -FURO80TA87 PO; -LISI40TA20 PO; +LISI5TAB22 PO; +POTA-192 PO; +SPIR25TA PO; -TRAM50TA2 PO
--- NOTE | 2024-12-27 13:40 | Physician Documentation ---
History of Present Illness General Chief Complaint: Shortness of Breath Stated Complaint: SOB Time Seen by MD: 13:39 OK to notify your PCP?: No Primary Medical Doctor: ARLENE Source: patient, RN notes reviewed, old records Mode of Arrival: POV Exam Limitations: no limitations History of Present Illness Initial Comments 59 year old female, with a history of atrial fibrillation and CHF, presents to the ED complaining of shortness of breath and rapid heart rate, intermittent for the last few days but consistent today. Shortness of breath greatly worsens with minimal exertion.She denies any fever, chills, or vomiting. Per old records, patient was admitted to this hospital in mid November of this year for atrial fibrillation with a RVR and CHF. During this time she had an echocardiogram that showed LVEF of 15-20%. Patient reports she was cardioverted at this time and returned to normal sinus rhythm. Since discharge with the hospitalist she has been feeling great until the last few days. Software Clerk is Dr. Galvez. Medication Reconciliation Allergies: Coded Allergies: Penicillins (Verified Allergy, Severe, ANAPHYLAXIS, 05/09/15) Sulfa (Sulfonamide Antibiotics) (Verified Allergy, Severe, ANAPHYLAXIS, 05/09/15) cephalexin (Verified Allergy, Severe, ANAPHYLAXIS, 05/09/15) shellfish derived (Verified Allergy, Severe, 05/09/15) ciprofloxacin (Verified Allergy, Unknown, RASH, 12/10/24) Scheduled Amiodarone HCl (Amiodarone HCl), 1 TAB PO BID Apixaban (Eliquis), 1 TAB PO Q12H Dapagliflozin Propanediol (Farxiga), 1 TAB PO DAILY Furosemide (Furosemide), 1 TAB PO DAILY, (Reported) Lisinopril (Lisinopril), 1 TAB PO DAILY Metoprolol Succinate (Metoprolol Succinate), 1 TAB PO HS Spironolactone (Aldactone), 12.5 MG PO DAILY@0830 Scheduled PRN Albuterol Sulfate/Budesonide (Airsupra 90-80 Mcg Inhaler), 2 PUFF IH Q4H PRN for SOB or wheezing, (Reported) Discontinued Medications Carvedilol (Carvedilol), 1 TAB PO Q12H Empagliflozin (Jardiance), 1 TAB PO DAILY Lisinopril (Lisinopril), 5 MG PO DAILY Discontinued Reason: patient no longer taking Sacubitril/Valsartan (Entresto 24 mg-26 mg Tablet), 1 TAB PO Q12H, (Reported) [Sacub/Valsar], (Reported) Discontinued Reason: Other [Sacub/Valsar], 24-26 MG PO ONCE, (Reported) Discontinued Reason: Prescription changed Past Medical History Past Medical History: Congestive Heart Failure, Hypertension Past Surgical History: noncontributory Alcohol Use: None Drug Use: none Lives In: Home Review of Systems All Other Systems at this time: Reviewed and Negative ROS shortness of breath as well as other positive symptoms as stated above in the HPI, otherwise all systems are reviewed and negative. Physical Exam Physical Exam Vital Signs: RN Vital Signs have been reviewed: Yes, Temperature: 98.0, Heart Rate: 125, Respiratory Rate: 18, BP: 132/36, Weight: 143.000 Oxygen Flow Rate: 0 Pulse Oximetry Reflects: adequate oxygenation Physical Exam VITALS: Reviewed and as above. GENERAL: Alert, no apparent distress. HEENT: Normocephalic, atraumatic, PERRL, EOMI, dry mucosa RESPIRATORY: diminished breath sounds bilaterally. No tachypnea. no respiratory distress. CHEST: No accessory muscle use, no retractions CV: Irregularly irregular rhythm, tachycardic, no murmur, No: JVD GI: Soft, non-tender, bowels sounds present, no rebound, guarding, or rigidity MUSCULOSKELETAL: No deformities, no edema SKIN: Warm and dry, no rash NEURO: Oriented x4, No motor or sensory deficit PSYCH: Normal mood and affect, no agitation Procedures Moderate Sedation : Date of Procedure: Dec 27, 2024 Chief Complaint: cardioversion See Completed H&P Dated: Dec 27, 2024 Pulmonary Assessment: Unremarkable Neurological Assessment: Unremarkable Cardiovascular Assessment: EKG reviewed, hypertension, other Other Systems: obese Medications: see reconiliation form ASA Class: III-severe disease Mallampati Score/Visibility of: Class 2-uvula Medication Used: Other (etomidate, 10mg) Staff Present: primary nurse, sleep technician Monitoring: cardiac catheterization technician, Spo2, NIPB, patient on oxygen via N/C, suction ready, crash cart at bedside, BVM ready Tolerated Procedure Well?: yes, no complications Duration of Procedure (min): 12 Cardioversion Cardioversion : Medications: Other (see sedation note) Joules: 200 Resulting Rhythm: NSR Tolerated Procedure Well?: yes, no complications Progress Progress Note 1436: Case discussed with Dr. Kaela Galvez, single corner cutter, who agrees with plan for cardioversion. 1543: hospitalist paged. 1555: case discussed with internal medicine resident, who agrees to evaluate the patient for admission. Results/Orders Reviewed/noted all lab results: Yes Results/Orders Orders - OHLJASMYNE FORREST MD Chest,Single View (12/27/24 13:52) Monitor (12/27/24 13:44) Saline Lock (12/27/24 13:44) Oxygen (12/27/24 13:44) Electrocardiogram (12/27/24 13:44) Electrocardiogram (12/27/24 ) Page Hospitalist (12/27/24 15:43) Fill Out Med Reconciliation (12/27/24 15:43) Completed Orders - JASMYNE CASTILLO MD Chest,Single View (12/27/24 13:52) Cbc/Diff (12/27/24 13:44) BMP (12/27/24 13:44) PBNP (12/27/24 13:44) Electrocardiogram (12/27/24 13:44) Hs Troponin I W Calculations (12/27/24 13:44) Hs Troponin I W Calculations (12/27/24 15:44) Hs Troponin I W Calculations (12/27/24 16:44) Etomidate Inj (Amidate Inj) (12/27/24 15:10) Furosemide Inj (Lasix Inj) (12/27/24 15:40) Electrocardiogram (12/27/24 ) MG (12/27/24 14:18) Laboratory Tests Test 12/27/24 14:18 White Blood Count 9.3 Red Blood Count 4.71 Hemoglobin 13.1 Hematocrit 40.1 Mean Corpuscular Volume 85.0 Mean Corpuscular Hemoglobin 27.9 Mean Corpuscular Hemoglobin Concent 32.8 L Red Cell Distribution Width 16.6 H Platelet Count 356 Mean Platelet Volume 7.4 Neutrophils (%) (Auto) 75.8 H Lymphocytes (%) (Auto) 14.8 L Monocytes (%) (Auto) 7.7 Eosinophils (%) (Auto) 0.9 Basophils (%) (Auto) 0.8 Neutrophils # (Auto) 7.0 Lymphocytes # (Auto) 1.4 Monocytes # (Auto) 0.7 Eosinophils # (Auto) 0.1 Basophils # (Auto) 0.1 CBC Comment Prothrombin Time 13.6 H INR International Normalized Ratio 1.4 Activated Partial Thromboplast Time 33 H Coagulation Comments Sodium Level 137 Potassium Level 4.0 Chloride Level 103 Carbon Dioxide Level 24.6 Anion Gap 9 Blood Urea Nitrogen 28 H Creatinine 0.97 H Estimated GFR/1.73 m2 59 BUN/Creatinine Ratio 28.9 H Glucose Level 109 H Calcium Level 8.9 Magnesium Level 2.2 Troponin I High Sensitivity 29 Pro-B-Type Natriuretic Peptide 76332 H Albumin 3.4 Chemistry Comments EKG/XRAY/CT/US/VASC/MRI EKG #1: Additional Comment 1334: EKG interpreted by myself to show sinus arrhythmia at a rate of 72bpm. LAD, nonspecific ST changes. EKG #2: Additional Comment 1538: EKG interpereted by me to show NST at a rate of 72bpm. Chest X-Ray : Additional Comments CHEST RADIOGRAPH Indication: CP Technique: Single frontal view of the chest was obtained Comparison: DI CHEST,SINGLE VIEW on DOS: 12/08/24 FINDINGS: Lines and Tubes: None Lungs: Diffuse interstitial prominence. Obscuration of the left hemidiaphragm. No pneumothorax. Cardiomediastinal contours: Moderate cardiomegaly with a Mild atherosclerotic calcification and uncoiling of the aorta. Bones: No acute osseous abnormality. IMPRESSION: Moderate cardiomegaly with pulmonary vascular congestion. Obscuration of the left hemidiaphragm which may be from overlying cardiac silhouette with underlying pleural effusion/atelectasis/ pneumonia not excluded. Reviewed by myself. Medical Decision Making Additional info obtained from: old records (see HPI) Findings The patient is a 59-year-old female with a history of CHF with a ejection fraction of 15-20% who presented in an acute exacerbation of CHF with a rapid heart beat. The case was discussed with the patient's single corner cutter who stated he would be fine with us cardioverted with the patient in the emergency room as the patient has been anticoagulated for months, the patient was consented for synchronized electrical cardioversion and the patient was cardioverted at 200 joules in the emergency department. The patient had successful cardioversion to a normal sinus rhythm she continues to have some shortness of breath and pulmonary edema consistent with CHF the patient will be admitted to the hospitalist for this. The patient's chest x-ray was interpreted by me as sh owing an enlarged cardiac silhouette bilateral pulmonary edema and normal- appearing bony structures and a normal-appearing mediastinum I interpreted the x-ray as showing congestive heart failure I have also reviewed the radiologist's interpretation I have reviewed the EKG and I have also reviewed all the labs and prior hospitalizations. The patient's pulse oximetry was interpreted by me as an abnormal and low. The patient will be admitted to the hospitalist case has been discussed with the hospitalist. Departure Time of Disposition: 15:43 Disposition: ADMITTED INPATIENT Admitted to Inpatient Unit: yes, to hospitalist Impression: Primary Impression: CHF (congestive heart failure) Qualified Codes: I50.9 - Heart failure, unspecified Additional Impression: Atrial fibrillation with RVR Condition: Fair Referrals: NO PRIMARY CARE PROVIDER (PCP) Prescriptions Amiodarone HCl (Amiodarone HCl) 200 Mg Tablet 1 TAB PO BID for 30 Days, #60 TAB 0 Refills 200 mg po bid for 1 wk, then 200 mg po qd Prov: RACHELLE KILPATRICK MD 12/31/24 Dapagliflozin Propanediol (Farxiga) 10 Mg Tablet 1 TAB PO DAILY for 30 Days, #30 TAB 0 Refills Prov: MAY LUIS, RES 12/30/24 Metoprolol Succinate (Metoprolol Succinate) 25 Mg Tab.sr.24h 1 TAB PO HS for 30 Days, #30 TAB 0 Refills Prov: MAY LUIS, RES 12/30/24 Lisinopril (Lisinopril) 2.5 Mg Tablet 1 TAB PO DAILY for 30 Days, #30 TAB 0 Refills Prov: MAY LUIS RES 12/30/24 Critical Care Note Total Time (mins): 35 Critical Care Note Critical Care Time: 35 minutes Treatments/Evaluations: Close monitoring and treatment of unstable vital signs, cardiorespiratory, and neurologic status, while maintaining tight balance of fluid, respiratory, and cardiac interventions. This time includes discussing the case with the patient and the patient's family. This time does not include all procedures stated elsewhere in this record. This time also includes reviewing old records, labs and radiological studies. This time includes examining and re- examining the patient. Additionally, this time also includes arranging care with admitting and consulting physicians. Signature Scribe Signature: Scribed for Jasmyne Castillo MD by Marcio Haddad . 12/27/24 14:00 Attestation: The note accurately reflects work and decisions made by me.Jasmyne Castillo MD 01/01/25 09:17 JASMYNE CASTILLO MD Dec 27, 2024 13:40 MARCIO HERNANDEZ Dec 27, 2024 14:11
--- NOTE | 2024-12-27 14:17 | RADIOLOGY REPORT ---
CHEST RADIOGRAPH Indication: CP Technique: Single frontal view of the chest was obtained Comparison: DI CHEST,SINGLE VIEW on DOS: 12/08/24 FINDINGS: Lines and Tubes: None Lungs: Diffuse interstitial prominence. Obscuration of the left hemidiaphragm. No pneumothorax. Cardiomediastinal contours: Moderate cardiomegaly with a Mild atherosclerotic calcification and uncoi ling of the aorta. Bones: No acute osseous abnormality. IMPRESSION: Moderate cardiomegaly with pulmonary vascular congestion. Obscuration of the left hemidiaphragm which may be from overlying cardiac silhouette with underlying pleural effusion/atelectasis/ pneumonia not excluded.
[2024-12-27 14:28] LABS: MEAN PLATELET VOLUME 7.4 FL (7.4-10.4); RED CELL DISTRIBUTION WIDTH 16.6 % (11.5-14.5)
--- NOTE | 2024-12-27 14:36 | ELECTROCARDIOGRAPH REPORT ---
[facility] Test Date: 2024-12-27 Test Time: 13:34:15 Pat Name: VAL PHILLIPS Department: EMERGENCY ROOM Room: [place] [address] Gender: F Paper Roll Machine Operator: NURY : 1965 Requested By: JASMYNE TORRES Order Number: [id number] Reading MD: Dr. Vidal Carter Measurements Intervals [place] Rate: 114 P: 0 SD: 0 QRS: 45 QRSD: 134 T: 221 QT: 331 QTc: 456 Interpretive Statements Atrial fibrillation Nonspecific intraventricular conduction delay Repol abnrm suggests ischemia, anterolateral Electronically Signed On 12-27-2024 19:35:[address] Vidal Carter Please click the below link to view image of tracing.
[2024-12-27 15:01] LABS: CREATININE 0.97 MG/DL (0.40-0.90); PRO BRAIN NATRIURETIC PEPTIDE 12110 PG/ML (0-125); TOTAL CARBON DIOXIDE 24.6 MMOL/L (24-32); eCRCL 59 ML/MIN; eGFR 59 ML/MIN
[2024-12-27] MEDS: etomidate 2mg/ml inj. IV ONE (15:40)
--- NOTE | 2024-12-27 15:41 | ELECTROCARDIOGRAPH REPORT ---
[facility] Test Date: 2024-12-27 Test Time: 15:38:57 Pat Name: VAL PHILLIPS Department: EMERGENCY ROOM Room: [place] [address] Gender: F Ladies Suit Operator: PAOLO : 1965 Requested By: JASMYNE TORRES Order Number: [id number] Reading MD: Dr. Vidal Carter Measurements Intervals [place] Rate: 72 P: 53 VT: 192 QRS: 1 QRSD: 122 T: 167 QT: 429 QTc: 470 Interpretive Statements Sinus arrhythmia Left bundle branch block Electronically Signed On 12-27-2024 19:35:[address] Vidal Carter Please click the below link to view image of tracing.
[2024-12-27] MEDS: furosemide 10 MG/1 ML 10ml inj IV ONE (15:48)
[2024-12-27] MEDS ORDERED: ondansetron/PF 4mg/2ml inj IV PRN (15:55)
[2024-12-27] MEDS ORDERED: magnesium sulf-water 4G/100mL 100 ML IV PRN (15:55)
[2024-12-27] MEDS ORDERED: magnesium Cl slow-release 64mg tablet PO PRN (15:55)
[2024-12-27] MEDS ORDERED: mag hydrox/Alum hydrox/simeth 30ml oral suspension PO PRN (15:55)
[2024-12-27] MEDS ORDERED: potassium Cl 40MEQ/1/2NS 520ml 520 ML IV PRN (15:55)
[2024-12-27] MEDS ORDERED: magnesium hydroxide 30ml (MOM) UD suspension PO PRN (15:55)
[2024-12-27] MEDS ORDERED: potassium Cl 20 mEq SR tablet PO PRN ×2 (15:55)
[2024-12-27] MEDS: EMPAGLIFLOZIN 10 MG TABLET PO SCH (15:55)
[2024-12-27] MEDS ORDERED: magnesium sulf-water 2g/50mL 50 ML IV PRN (15:55)
--- NOTE | 2024-12-27 16:20 | HISTORY AND PHYSICAL-Residence ---
History & Physical Providers to CC Resident Creating Document: ADAM KEMP RES ~ History of Present Illness Primary Medical Doctor: ARLENE Reason for Admit\Complaint: Acute on chronic CHF exacerbation with AFib cardioverted History of Present Illness A 59 years old female with a past medical history of CHFrEF 15-20% on 12/09/2024, Atrial fibrillation with rapid ventricular rate on Eliquis and s/p electro-cardioverted, Asymptomatic bacteriuria, chronic Hematuria and Nephrolithiasis, History of DVT and PE, s/p bilateral Total knee replacement surgery presented to the ER for the acute sudden SOB yesterday found to have the uncontrolled HR around 140s as maximum. She noticed that she had an intolerable progressive SOB when she came back from the bathroom. She found herself tachycardia with max HR around 140s with feeling of weakness,dizziness, almost fainted and sweating without having any CP/ pressure and discomfort, and syncope, hemoptysis, orthopnea and PND, bilateral pedal edema, and dropping down of the oxygen. She does not has to use the oxygen at home. She denied any recent viral upper respiratory infection, fever with chills and rigors except for the last month admission for pneumonia. She is having sedentary lifestyle and has to use walker only when she goes outside of the house. She commented that she was very compliance with the medications whatever prescribed by Dr. Galvez. In ER, Dr. Galvez recommended to control her AFib with RVR with a electrocardioversion although her vitals were stable, and she was cardioverted back after that since she is already on the anticoagulation with stable vital signs. Allergies: Coded Allergies: Penicillins (Verified Allergy, Severe, ANAPHYLAXIS, 05/09/15) Sulfa (Sulfonamide Antibiotics) (Verified Allergy, Severe, ANAPHYLAXIS, 05/09/15) cephalexin (Verified Allergy, Severe, ANAPHYLAXIS, 05/09/15) shellfish derived (Verified Allergy, Severe, 05/09/15) ciprofloxacin (Verified Allergy, Unknown, RASH, 12/10/24) Home Medications Home Medications Active Lasix (Furosemide) 40 Mg Tablet 1 Tab PO DAILY 30 Days Jardiance (Empagliflozin) 10 Mg Tablet 1 Tab PO DAILY 30 Days Airsupra 90-80 Mcg Inhaler (Albuterol Sulfate/Budesonide) 90 Mcg-80 Mcg/Actuation Hfa.aer.ad 2 Puffs IH Q4H PRN 30 Days Carvedilol 3.125 Mg Tablet 1 Tab PO Q12H 30 Days Eliquis (Apixaban) 5 Mg Tablet 1 Tab PO Q12H 30 Days Aldactone (Spironolactone) 25 Mg Tablet 12.5 Mg PO DAILY@0830 30 Days Lisinopril 5 Mg Tablet 5 Mg PO DAILY 30 Days Reported Klor-Con (Potassium Chloride) 10 Meq Tab.prt.sr 1 Tab PO DAILY Jardiance (Empagliflozin) 10 Mg Tablet 1 Tab PO DAILY Furosemide 40 Mg Tablet 1 Tab PO DAILY Airsupra 90-80 Mcg Inhaler (Albuterol Sulfate/Budesonide) 90 Mcg-80 Mcg/Actuation Hfa.aer.ad 2 Puff IH Q4H PRN Carvedilol 3.125 Mg Tablet 1 Tab PO BID Eliquis (Apixaban) 5 Mg Tablet 1 Tab PO BID Past Medical History Past Medical History CHFrEF 15-20% on 12/09/2024, Atrial fibrillation with rapid ventricular rate on Eliquis and s/p electro-cardioverted, Asymptomatic bacteriuria, chronic Hematuria and Nephrolithiasis, History of DVT and PE, Past Surgical History Surgical History Comment s/p bilateral Total knee replacement surgery Family History Family History: FH: HTN (hypertension) FATHER (r/t undiagnosed afib), , Cause: Stroke, Onset:Unknown MOTHER, Onset:Unknown FH: atrial fibrillation FATHER (r/t undiagnosed afib), , Cause: Stroke, Onset:Unknown FH: diabetes mellitus FATHER (r/t undiagnosed afib), , Cause: Stroke, Onset:Unknown MOTHER, Onset:Unknown Past Social History Social History Comment She is currently living with her sister and son-in-law were helping out. She used to be a heavy smoker but quit smoking 10 years ago, denies using any illicit drugs, she is free from drinking alcohol six months ago. She has to use walker when she walks outside of the house, her primary care doctor is in [facility] area. Her veneer cutter is Dr. Galvez. Alcohol Use: None Drug Use: None Lives In: Home ROS All Other Systems: Reviewed and Negative ROS Constitutional: No fever, chills, dizziness, weakness, weight gain or loss Eyes: No pain, erythema, discharge, blurring of vision ENT: No sore throat, epistaxis, tinnitus Cardiovascular: No chest pain, chest pressure, chest discomfort, syncope, paroxysmal nocturnal dyspnea Respiratory: No shortness of breath, cough, hemoptysis Gastrointestinal: Normal appetite. No nausea, vomiting, diarrhea, constipation, hematemesis, abdominal pain, bloating, melena or fresh blood Genitourinary: No frequency, urgency, nocturia, hematuria or dysuria Musculoskeletal: No arthralgias or myalgias Integumentary: No change in skin, hair, nails. No swelling, bruising, abrasions Neurologic: No headache, neck pain, numbness or tingling of the extremities, weakness Psychiatric: No delusions, depression, loss of interest in normal activity or change in sleep pattern, hallucinations, suicidal ideations Endocrine: No fatigue, weakness, polydipsia, polyuria, change in appetite, heat or cold intolerance, sweating, dry skin Hematological: No bleeding, petechiae, bruising Allergies: No asthma or urticaria Exam Vitals: Vital Signs Date Time Temp Pulse Resp B/P (MAP) Pulse Ox O2 Delivery O2 Flow Rate FiO2 12/27/24 15:54 98.0 71 23 116/81 (93) 99 2.0 12/27/24 15:35 Nasal Cannula General: General: Generalized obese, Well alert, well oriented, not confused, not agitated, not in acute distress, well cooperated during the physical. HEENT: HEENT: Conjunctive are pink, sclerae clear, no icterus, pupil is equal in both sides, reactive to light, no ear discharge, no pharyngeal erythema or an edema, mouth and lips are moist. Neck: Neck: Supple, no JVD, no lymphadenopathy and thyromegaly. Chest: Lungs:Equal air entry on both lungs, slight bilateral basal crackles Cardiovascular: Heart: S1-S2 r irregularly irregular rhythm and, regular rate, no gallops, no rubs, no murmurs Abdomen: Abdomen: No visible peristalsis, Bowel sounds present on auscultation, soft, nontender, no guarding, no rigidity Extremities: Extremities: No obvious deformities, 1+ pitting edema bilaterally, capillary refill intact, able to wiggle toes both sides, peripheral pulsations are intact on both sides Central Nervous System: [employer]: No focal neurological deficits, no motor and sensory weakness in all 4 extremities, could move all 4 extremities Musculoskeletal: Musculoskeletal: No joint swelling, deformities, inflammations, and no scoliosis and back tenderness Skin: Skin: No active skin lesions and rashes Diagnostic Data Last Recorded Lab Results: 12/28/2461812/28/24618 Counseling Services Smoking & Tobacco Cessation: > 10 Minutes Advance Care Planning Advanced Care plannin - 30 Minutes Additional Plan A 59 years old female with a past medical history of CHFrEF 15-20% on 12/09/2024, Atrial fibrillation with rapid ventricular rate on Eliquis and s/p electro-cardioverted, Asymptomatic bacteriuria, chronic Hematuria and Nephrolithiasis, History of DVT and PE, s/p bilateral Total knee replacement surgery presented to the ER for the acute sudden SOB yesterday found to have the uncontrolled HR around 140s as maximum. # Acute respiratory failure from below # Acute decompensated on chronic C HFrEF 15-20% on 12/09/2024 # AFib with rapid ventricular rate on Eliquis # s/p electro cardioverted -Given hx of chronic CHF with presented acute shortness of breaths with rapid ventricular rate, and CXR showed Moderate cardiomegaly with pulmonary vascular congestion. Obscuration of the left hemidiaphragm which may be from overlying cardiac silhouette with underlying pleural effusion/atelectasis/ pneumonia not excluded, ProBNP elevated, acute decompensated on chronic CHF was likely. -Was given one time dose of IV Lasix 40 in ER. -Continue IV Lasix 40 mg BID and adjust as per her fluid status -GDMT w/ spironolactone, ACEI, Carvedilol- double her usual dosage 6.25 b.i.d., and Jardiance(plant switch to Metoprolol succinate with the more cardiovascular benefit once pt is stablized later) and double the dosage of Lasix 40 mg b.i.d. -salt restriction with 2 g per day, no added salt in diet along with heart healthy diet -Her 2D echocardiogram on 12/09/2024 showed moderately dilated severely systolic dysfunction, LVEF 15-20%, dilated RV, RVSP 51 mm Hg, moderate dilated LA, trace AI, mild MR, TR, normal pericardium no effusion. -as needed 2L O2 with NC with head end of bed raising -Strict I's and O's -continue telemetry monitoring, monitor heart rate with the vital signs -continue Eliquis full dosage -within normal troponin serial level # DIAMOND - mostly pre-renal/ renal tubular stasis -creatinine 0.97, baseline was around 0.7 2weeks ago. -continue monitoring -trending GFR rate of declining -pending UA, urine lytes -fluid replacement would not be favor in the setting of acute on chronic CHFrEF exacerbation # history of DVT/PE -continue Eliquis food dosage # class 4 obesity BMI 50.9 # AMIE on CPAP therapy -continue CPAP therapy -encourage weight losing plan # Possible COPD # Hx of substance use ( tobacco and EtOH) -as needed DuoNeb q.4 hours -p.o. Mucinex 600 mg b.i.d. -counseled and educated about the risk including cardiovascular accident, cerebrovascular accident, and cancer related to tobacco abuse and usage of nicotine patch during hospitalization -strongly encouraged to quit smoking as much as possible -Same as in ETOH education -to consider the nicotine patch as needed CODE STATUS: Full code DVT prophylaxis: Sc heparin 5000 units b.i.d. Analgesia/sedation: IV morphine as needed Lines/tubes: PIV GI prophylaxis: Protonix Nutrition: Heart healthy diet with no added salt and salt restrict to 2 g per day Prognosis: Guarded Disposition: Continue medical management including GDM T, blood pressure monitoring, telemetry monitoring, heart rate control, PT eval and DC plan Resident MD attestation: Patient was seen, examined and discussed with attending MD, Dr. Gabe KEMP MD Internal Medicine Resident, PGY3 [facility] Addendum morbid obesity bmi 51 Date of Service: Dec 27, 2024 Billing Provider: RACHELLE KILPATRICK MD Common Visit Codes: 59214-ITFMSNZ INP/OBS CARE (HIGH) Secondary Visit Codes: 38604-[id number] CARE PLAN 30 MINUTES ADAM KEMP, RES Dec 27, 2024 16:20 RACHELLE KILPATRICK MD Dec 29, 2024 06:54
[2024-12-27 16:40] LABS: APTT 33 SECONDS (22-32); INR 1.4 INR
[2024-12-27 17:29] LABS: URINE AMPHETAMINE SCREEN NEGATIVE (Neg); URINE BARBITUATE SCREEN NEGATIVE (Neg); URINE BENZODIAZEPINES SCREEN NEGATIVE (Neg); URINE CANNABINOID SCREEN NEGATIVE (Neg); URINE COCAINE SCREEN NEGATIVE (Neg); URINE METHADONE SCREEN NEGATIVE (Neg); URINE OPIATE SCREEN NEGATIVE (Neg); URINE PHENCYCLIDINE SCREEN NEGATIVE (Neg)
[2024-12-27] MEDS ORDERED: heparin, porcine 5000 units/ml vial SQ SCH (20:00)
[2024-12-27] MEDS: K and/or MAG REPLACEMENT MC SCH (20:00)
[2024-12-27] MEDS: carvedilol 6.25mg tablet PO SCH (20:07)
[2024-12-27] MEDS ORDERED: VALSARTAN (22:55)
[2024-12-27] MEDS ORDERED: SACUBITRIL (22:55)
[2024-12-27] MEDS ORDERED: VALSARTAN PO (22:58)
[2024-12-27] MEDS ORDERED: SACUBITRIL PO (22:58)
[2024-12-28] VITALS (11 sets, daily range): BP systolic 92–121; BP diastolic 41–84; PULSE 59–79; RESP 15–23; TEMP 96.9–98.1; O2SAT 90–98
[2024-12-28] MEDS: ipratropium/albuterol 3ml nebule NEB PRN (03:13)
[2024-12-28 06:41] LABS: MEAN PLATELET VOLUME 7.5 FL (7.4-10.4); RED CELL DISTRIBUTION WIDTH 16.1 % (11.5-14.5)
[2024-12-28 07:04] LABS: CREATININE 1.12 MG/DL (0.40-0.90); TOTAL CARBON DIOXIDE 26.0 MMOL/L (24-32); eCRCL 51 ML/MIN; eGFR 50 ML/MIN
[2024-12-28] MEDS: pantoprazole 40mg Tablet.DR PO SCH (08:15)
--- NOTE | 2024-12-28 11:51 | CONSULTATION REPORT ---
History of Present Illness Providers to CC CC: LUISA GALVEZ MD ~ Reason for Admit\Admit Dx: Cardiology consultation Refering MD: Hospitalist service History of Present Illness Patient presented secondary to shortness for breath and rapid heartbeat. She has known history of atrial fibrillation on oral anticoagulation, heart failure with reduced ejection fraction on guideline directed medical therapy with Entresto, Jardiance, carvedilol and spironolactone. Past medical history of a thyroid tumor, chronic hematuria/nephrolithiasis, history of DVT/PE. She underwent cardioversion in the emergency department on December 27, 2024. This was her 2nd cardioversion within the past 30 days. She underwent cardioversion in the emergency department on December 08, 2024. Currently, she continues to have dyspnea on exertion. Has been maintaining sinus rhythm. No significant shortness for breath at rest. No chest pain or pressure. Allergies: Coded Allergies: Penicillins (Verified Allergy, Severe, ANAPHYLAXIS, 05/09/15) Sulfa (Sulfonamide Antibiotics) (Verified Allergy, Severe, ANAPHYLAXIS, 05/09/15) cephalexin (Verified Allergy, Severe, ANAPHYLAXIS, 05/09/15) shellfish derived (Verified Allergy, Severe, 05/09/15) ciprofloxacin (Verified Allergy, Unknown, RASH, 12/10/24) Home Medications Home Medications Active Lasix (Furosemide) 40 Mg Tablet 1 Tab PO DAILY 30 Days Jardiance (Empagliflozin) 10 Mg Tablet 1 Tab PO DAILY 30 Days Airsupra 90-80 Mcg Inhaler (Albuterol Sulfate/Budesonide) 90 Mcg-80 Mcg/Actuation Hfa.aer.ad 2 Puffs IH Q4H PRN 30 Days Carvedilol 3.125 Mg Tablet 1 Tab PO Q12H 30 Days Eliquis (Apixaban) 5 Mg Tablet 1 Tab PO Q12H 30 Days Aldactone (Spironolactone) 25 Mg Tablet 12.5 Mg PO DAILY@0830 30 Days Reported [Sacub/Valsar] 24-26 Mg PO ONCE Klor-Con (Potassium Chloride) 10 Meq Tab.prt.sr 1 Tab PO DAILY Jardiance (Empagliflozin) 10 Mg Tablet 1 Tab PO DAILY Furosemide 40 Mg Tablet 1 Tab PO DAILY Airsupra 90-80 Mcg Inhaler (Albuterol Sulfate/Budesonide) 90 Mcg-80 Mcg/Actuation Hfa.aer.ad 2 Puff IH Q4H PRN Carvedilol 3.125 Mg Tablet 1 Tab PO BID Eliquis (Apixaban) 5 Mg Tablet 1 Tab PO BID Past Medical History Medical History Comment Heart failure with reduced ejection fraction Atrial fibrillation Thyroid tumor Obesity DVT/PE Nephrolithiasis Obstructive sleep apnea on CPAP Past Surgical History Surgical History Comment Knee surgery Past Family History Family History: FH: HTN (hypertension) FATHER (r/t undiagnosed afib), , Cause: Stroke, Onset:Unknown MOTHER, Onset:Unknown FH: atrial fibrillation FATHER (r/t undiagnosed afib), , Cause: Stroke, Onset:Unknown FH: diabetes mellitus FATHER (r/t undiagnosed afib), , Cause: Stroke, Onset:Unknown MOTHER, Onset:Unknown Past Social History Social History Comment Does not currently smoke, drink alcohol or use recreational drugs. Physical Exam Last Vital Signs Recorded: RN Vital Signs have been reviewed: Yes, Temperature: 98.1, Source: Oral, Heart Rate: 63, Respiratory Rate: 18, BP: 92/60, Pulse Oximetry: 98, Weight: 143.000 Physical Exam General: Awake, alert, oriented. No apparent distress Neck: Supple. Normal range of motion. No JVD Respiratory: Lungs are clear to auscultation bilaterally. No respiratory distress. Chest: Normal shape and size. No accessory muscle use. Cardiovascular: Regular rate and rhythm. S1-S2. No murmur, gallop, rub. Extremities: No lower extremity edema, cyanosis or clubbing. Neurologic: Alert and oriented x4. Nonfocal Psychiatric: Normal mood and affect. Skin: Normal color. Warm and dry. Review of Systems ROS Review of systems negative except documented in HPI. Results Diagram Lab Result Diagram: 12/28/24 0619 12/28/24618 Assessment/Plan Additional Plan Patient presented secondary to shortness for breath and rapid heartbeat. The following is her problem list: Atrial fibrillation with rapid ventricular response Converted to sinus rhythm with direct current cardioversion in the emergency department December 27, 2024 --continue Eliquis 5 mg b.i.d. --continue carvedilol --start amiodarone 200 mg b.i.d. for two weeks followed by 200 mg daily --outpatient referral to electrophysiology Heart failure with reduced ejection fraction, acute on chronic --stop lisinopril --restart home Entresto after 36 hour washout. --continue carvedilol 6.25 mg b.i.d. --continue spironolactone 25 mg daily --continue Jardiance 10 mg daily --Lasix to keep euvolemic Case discussed with Dr. Jon Galvez who is in agreement with this plan. Supervising MD Supervising Physician: MOISES Oglesby NP Dec 28, 2024 11:50
[2024-12-28] MEDS ORDERED: SACU1TAB PO (13:21)
--- NOTE | 2024-12-28 16:48 | PROGRESS NOTE- Residence ---
Progress Note - Resident Providers to CC Resident Creating Document: ADAM KEMP RES ~ Antibiotic Timeout Antibiotic Ordered?: No Subjective Patient stated that her shortness of breath is getting way more better than yesterday. She is producing urine output on Lasix therapy. She remains sinus on telemetry tracing throughout the night and this morning. She has a desire to consult with the Cardiology Dr. Galvez before discharge for the further atrial fibrillation management plan as well. Objective Vital Signs Date Time Temp Pulse Resp B/P (MAP) Pulse Ox O2 Delivery O2 Flow Rate FiO2 12/28/24 11:00 98.1 63 18 92/60 (71) 98 Room Air 12/28/24 07:36 0 21 Result Diagram: 12/28/2461812/28/24618 Vitals were stable at the moment with temp 96.9 F, DC 74/minute, RR 15/minute, BP 120/84 mm Hg, pulse oximetry 90% on room air. On exam, General: Generalized obese, Well alert, well oriented, not confused, not agitated, not in acute distress, well cooperated during the physical. HEENT: Conjunctive are pink, sclerae clear, no icterus, pupil is equal in both sides, reactive to light, no ear discharge, no pharyngeal erythema or an edema, mouth and lips are moist. Neck: Supple, no JVD, no lymphadenopathy and thyromegaly. 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: No focal neurological deficits, no motor and sensory weakness in all 4 extremities, could move all 4 extremities Musculoskeletal: No joint swelling, deformities, inflammations, and no scoliosis and back tenderness Skin: No active skin lesions and rashes Coagulation Studies Laboratory Tests Test 12/27/24 14:18 Prothrombin Time 13.6 SECONDS (9.0-12.0) H INR International Normalized Ratio 1.4 INR Activated Partial Thromboplast Time 33 SECONDS (22-32) H Coagulation Comments Assessment Assessment A 59 years old female with a past medical history of CHFrEF 15-20% on 12/09/2024, Atrial fibrillation with rapid ventricular rate on Eliquis and s/p electro-cardioverted, Asymptomatic bacteriuria, chronic Hematuria and Nephrolithiasis, History of DVT and PE, s/p bilateral Total knee replacement surgery presented to the ER for the acute sudden SOB yesterday found to have the uncontrolled HR around 140s as maximum. Plan Plan # Acute respiratory failure from below # Acute decompensated on chronic C HFrEF 15-20% on 12/09/2024 # AFib with rapid ventricular rate on Eliquis # s/p electro cardioverted -Given hx of chronic CHF with presented acute shortness of breaths with rapid ventricular rate, and CXR showed Moderate cardiomegaly with pulmonary vascular congestion. Obscuration of the left hemidiaphragm which may be from overlying cardiac silhouette with underlying pleural effusion/atelectasis/ pneumonia not excluded, ProBNP elevated, acute decompensated on chronic CHF was likely. -Was given one time dose of IV Lasix 40 in ER. -Continue IV Lasix 40 mg BID and adjust as per her fluid status -GDMT w/ spironolactone, ACEI, Carvedilol- double her usual dosage 6.25 b.i.d., and Jardiance(plant switch to Metoprolol succinate with the more cardiovascular benefit once pt is stablized later) and double the dosage of Lasix 40 mg b.i.d. -salt restriction with 2 g per day, no added salt in diet along with heart healthy diet -Her 2D echocardiogram on 12/09/2024 showed moderately dilated severely systolic dysfunction, LVEF 15-20%, dilated RV, RVSP 51 mm Hg, moderate dilated LA, trace AI, mild MR, TR, normal pericardium no effusion. -as needed 2L O2 with NC with head end of bed raising -Strict I's and O's -continue telemetry monitoring, monitor heart rate with the vital signs -continue Eliquis full dosage -within normal troponin serial level 12/28/2024: Has completed 2 times of cardioversion in a month -Cardiology Dr. Galvez's team consulted the patient and appreciate for the consultation -continue anticoagulation Eliquis 5 mg b.i.d., carvedilol 6.25 mg b.i.d. -cardiology recommended to start amiodarone 200 mg b.i.d. for two weeks followed by 200 mg daily -to follow up with PCP outpatient referral to electrophysiology -cardiology recommended to switch Entresto after 36 hours of discontinuing lisinopril, and continue GDMT with lasix -to replace Jardiance with Farxiga on discharge # DIAMOND - mostly pre-renal/ renal tubular stasis -creatinine 0.97, baseline was around 0.7 2weeks ago. -continue monitoring -trending GFR rate of declining -pending UA, urine lytes -fluid replacement would not be favor in the setting of acute on chronic CHFrEF exacerbation 12/28/2024: Creatinine is little bit trending up on Lasix therapy, continue monitoring -pending urine lytes for the possible cause of DIAMOND # history of DVT/PE -continue Eliquis full dosage # class 4 obesity BMI 50.9 # AMIE on CPAP therapy -continue CPAP therapy -encourage weight losing plan # Possible COPD # Hx of substance use ( tobacco and EtOH) -as needed DuoNeb q.4 hours -p.o. Mucinex 600 mg b.i.d. -counseled and educated about the risk including cardiovascular accident, cerebrovascular accident, and cancer related to tobacco abuse and usage of nicotine patch during hospitalization -strongly encouraged to quit smoking as much as possible -Same as in ETOH education -to consider the nicotine patch as needed CODE STATUS: Full code DVT prophylaxis: Sc heparin 5000 units b.i.d. Analgesia/sedation: IV morphine as needed Lines/tubes: PIV GI prophylaxis: Protonix Nutrition: Heart healthy diet with no added salt and salt restrict to 2 g per day Prognosis: Guarded Disposition: Continue medical management including GDMT with lasix, blood pressure monitoring, telemetry monitoring, heart rate control, PT eval and DC plan, to start Entresto in 36 hrs after Lisinopril has stopped (12/30/24). Resident MD attestation: Patient was seen, examined and discussed with attending MD, Dr. Gabe KEMP MD Internal Medicine Resident, PGY3 [facility] Date of Service: Dec 28, 2024 Billing Provider: RACHELLE KILPATRICK MD Common Visit Codes: [id number] INP/OBS CARE(HIGH) ADAM KEMP RES Dec 28, 2024 16:48 RACHELLE KILPATRICK MD Dec 29, 2024 06:55
[2024-12-28 20:42] LABS: OSMOLALITY UA 488.0 MOSM/K (50-1400)
[2024-12-28 21:03] LABS: CREATININE,URINE RANDOM 105.0 MG/DL
[2024-12-29] VITALS (12 sets, daily range): BP systolic 91–116; BP diastolic 52–69; PULSE 54–65; RESP 14–21; TEMP 97.3–98.1; O2SAT 95–98
[2024-12-29 07:07] LABS: MEAN PLATELET VOLUME 8.0 FL (7.4-10.4); RED CELL DISTRIBUTION WIDTH 16.1 % (11.5-14.5)
[2024-12-29 07:15] LABS: CREATININE 0.95 MG/DL (0.40-0.90); TOTAL CARBON DIOXIDE 26.0 MMOL/L (24-32); eCRCL 60 ML/MIN; eGFR 60 ML/MIN
[2024-12-29] MEDS: docusate sod 100mg capsule PO PRN (09:53)
--- NOTE | 2024-12-29 19:06 | PROGRESS NOTE- Residence ---
Progress Note - Resident Providers to CC Resident Creating Document: ADAM KEMP RES ~ Antibiotic Timeout Antibiotic Ordered?: No Subjective Patient was reported to have low blood pressure around 90s over 50s and heart rate around 55 this morning. The patient was put on amiodarone 200 mg b.i.d. by Cardiology yesterday for atrial fibrillation controlled and the patient is already on lisinopril and carvedilol. Patient stated that she want to stay in monitor one more overnight and plan to be going home with the new medication changes. Objective Vital Signs Date Time Temp Pulse Resp B/P (MAP) Pulse Ox O2 Delivery O2 Flow Rate FiO2 12/29/24 15:25 98.0 64 18 107/62 (77) Room Air 12/29/24 10:34 97 12/29/24 08:11 98 12/28/24 07:36 0 Result Diagram: 12/29/2461812/29/24618 Vitals were stable at the moment with temp 98 F, VA 62/minute, RR 14/minute, BP 96/52 mm Hg, pulse oximetry 97% on room air. On exam, General: Generalized obese, Well alert, well oriented, not confused, not agitated, not in acute distress, well cooperated during the physical. HEENT: Conjunctive are pink, sclerae clear, no icterus, pupil is equal in both sides, reactive to light, no ear discharge, no pharyngeal erythema or an edema, mouth and lips are moist. Neck: Supple, no JVD, no lymphadenopathy and thyromegaly. 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: No focal neurological deficits, no motor and sensory weakness in all 4 extremities, could move all 4 extremities Musculoskeletal: No joint swelling, deformities, inflammations, and no scoliosis and back tenderness Skin: No active skin lesions and rashes Coagulation Studies Laboratory Tests Test 12/27/24 14:18 Prothrombin Time 13.6 SECONDS (9.0-12.0) H INR International Normalized Ratio 1.4 INR Activated Partial Thromboplast Time 33 SECONDS (22-32) H Coagulation Comments Assessment Assessment A 59 years old female with a past medical history of CHFrEF 15-20% on 12/09/2024, Atrial fibrillation with rapid ventricular rate on Eliquis and s/p electro-cardioverted, Asymptomatic bacteriuria, chronic Hematuria and Nephrolithiasis, History of DVT and PE, s/p bilateral Total knee replacement surgery presented to the ER for the acute sudden SOB yesterday found to have the uncontrolled HR around 140s as maximum. Plan Plan # Acute respiratory failure from below # Acute decompensated on chronic C HFrEF 15-20% on 12/09/2024 # AFib with rapid ventricular rate on Eliquis # s/p electro cardioverted -Given hx of chronic CHF with presented acute shortness of breaths with rapid ventricular rate, and CXR showed Moderate cardiomegaly with pulmonary vascular congestion. Obscuration of the left hemidiaphragm which may be from overlying cardiac silhouette with underlying pleural effusion/atelectasis/ pneumonia not excluded, ProBNP elevated, acute decompensated on chronic CHF was likely. -Was given one time dose of IV Lasix 40 in ER. -Continue IV Lasix 40 mg BID and adjust as per her fluid status -GDMT w/ spironolactone, ACEI, Carvedilol- double her usual dosage 6.25 b.i.d., and Jardiance(plant switch to Metoprolol succinate with the more cardiovascular benefit once pt is stablized later) and double the dosage of Lasix 40 mg b.i.d. -salt restriction with 2 g per day, no added salt in diet along with heart healthy diet -Her 2D echocardiogram on 12/09/2024 showed moderately dilated severely systolic dysfunction, LVEF 15-20%, dilated RV, RVSP 51 mm Hg, moderate dilated LA, trace AI, mild MR, TR, normal pericardium no effusion. -as needed 2L O2 with NC with head end of bed raising -Strict I's and O's -continue telemetry monitoring, monitor heart rate with the vital signs -continue Eliquis full dosage -within normal troponin serial level 12/28/2024: Has completed 2 times of cardioversion in a month -Cardiology Dr. Galvez's team consulted the patient and appreciate for the consultation -continue anticoagulation Eliquis 5 mg b.i.d., carvedilol 6.25 mg b.i.d. -cardiology recommended to start amiodarone 200 mg b.i.d. for two weeks followed by 200 mg daily -to follow up with PCP outpatient referral to electrophysiology -cardiology recommended to switch Entresto after 36 hours of discontinuing lisinopril, and continue GDMT with lasix -to replace Jardiance with Farxiga on discharge 12/29/2024: Soft blood pressure with lower heart rate -change the metoprolol succinate 25 mg at nighttime, and put the patient back on lisinopril 2.5 mg in the morning time and continue current GDM T and amiodarone as per Cardiology recommendation -plan to discharge tomorrow if the blood pressure and heart rate is stabilized # DIAMOND - mostly pre-renal/ renal tubular stasis -creatinine 0.97, baseline was around 0.7 2weeks ago. -continue monitoring -trending GFR rate of declining -pending UA, urine lytes -fluid replacement would not be favor in the setting of acute on chronic CHFrEF exacerbation 12/28/2024: Creatinine is little bit trending up on Lasix therapy, continue monitoring -pending urine lytes for the possible cause of DIAMOND 12/29/2024: Slightly trending down creatinine today, continue monitoring -FENA showed prerenal 0.1% FENA # history of DVT/PE -continue Eliquis full dosage # class 4 obesity BMI 50.9 # AMIE on CPAP therapy -continue CPAP therapy -encourage weight losing plan # Possible COPD # Hx of substance use ( tobacco and EtOH) -as needed DuoNeb q.4 hours -p.o. Mucinex 600 mg b.i.d. -counseled and educated about the risk including cardiovascular accident, cerebrovascular accident, and cancer related to tobacco abuse and usage of nicotine patch during hospitalization -strongly encouraged to quit smoking as much as possible -Same as in ETOH education -to consider the nicotine patch as needed CODE STATUS: Full code DVT prophylaxis: Sc heparin 5000 units b.i.d. Analgesia/sedation: IV morphine as needed Lines/tubes: PIV GI prophylaxis: Protonix Nutrition: Heart healthy diet with no added salt and salt restrict to 2 g per day Prognosis: Guarded Disposition: Continue medical management including GDMT with lasix, blood pressure monitoring, telemetry monitoring, heart rate control, PT eval and DC plan tomorrow. Resident MD attestation: Patient was seen, examined and discussed with attending MD, Dr. Gabe KEMP MD Internal Medicine Resident, PGY3 [facility] Date of Service: Dec 29, 2024 Billing Provider: RACHELLE KILPATRICK MD Common Visit Codes: [id number] INP/OBS CARE(HIGH) ADAM KEMP, [place] Dec 29, 2024 19:06 RACHELLE KILPATRICK MD Dec 31, 2024 08:13
[2024-12-29] MEDS ORDERED: sacubitril/valsartan 24mg-26mg tablet PO SCH (20:00)
[2024-12-29] MEDS ORDERED: metoprolol tartrate 12.5mg (1/2 tablet) PO SCH (21:00)
[2024-12-29] MEDS: metoprolol succinate 25mg (24-HOUR) SR. Tablet PO SCH (22:25)
[2024-12-30 02:00] VITALS: BP 101/70; PULSE 63; RESP 22; TEMP 97.9; O2SAT 97
[2024-12-30 06:00] VITALS: BP 104/67; PULSE 58; RESP 19; TEMP 97.2; O2SAT 95
[2024-12-30 06:49] LABS: MEAN PLATELET VOLUME 7.4 FL (7.4-10.4); RED CELL DISTRIBUTION WIDTH 16.5 % (11.5-14.5)
[2024-12-30 07:00] VITALS: RESP 19; O2SAT 95
[2024-12-30 07:12] LABS: CREATININE 0.94 MG/DL (0.40-0.90); TOTAL CARBON DIOXIDE 29.6 MMOL/L (24-32); eCRCL 61 ML/MIN; eGFR 61 ML/MIN
[2024-12-30 07:36] VITALS: PULSE 62; RESP 18; O2SAT 91
[2024-12-30 11:00] VITALS: BP 100/66; PULSE 65; RESP 20; TEMP 97.6; O2SAT 100
[2024-12-30] MEDS ORDERED: LISI2.5T14 PO (11:33)
[2024-12-30] MEDS ORDERED: METO-395 PO (11:33)
[2024-12-30] MEDS ORDERED: DAPA10TA PO (11:39)
[2024-12-30 14:00] VITALS: BP 129/83; PULSE 67; RESP 18; TEMP 98.1; O2SAT 96
--- NOTE | 2024-12-30 17:58 | DISCHARGE SUMMARY-Residence ---
Discharge Summary Providers to CC Resident Creating Document: HARESH MAGDIMAY Choudhary, RES ~ Discharge Summary Admission Diagnosis: Acute on chronic CHF exacerbation with AFib cardioverted Hospital Course DATE OF ADMISSION: 12/27/2024 DATE OF DISCHARGE: 12/30/2024 Discharge Diagnosis\Comment: Acute respiratory failure from below Acute decompensated on chronic C HFrEF 15-20% on 12/09/2024 AFib with rapid ventricular rate on Eliquis s/p electro cardioverted DIAMOND - mostly pre-renal/ renal tubular stasis Operations\Procedures: Cardioversion Consultants: Cardiology, Dr. Galvez Complications: None Condition on DC: Stable New Medications: Dapagliflozin Propanediol (Farxiga) 10 Mg Tablet 1 TAB PO DAILY for 30 Days, #30 TAB 0 Refills Lisinopril (Lisinopril) 2.5 Mg Tablet 1 TAB PO DAILY for 30 Days, #30 TAB 0 Refills Metoprolol Succinate (Metoprolol Succinate) 25 Mg Tab.sr.24h 1 TAB PO HS for 30 Days, #30 TAB 0 Refills Continued Medications: Albuterol Sulfate/Budesonide (Airsupra 90-80 Mcg Inhaler) 90 Mcg-80 Mcg/Actuation Hfa.aer.ad 2 PUFF IH Q4H PRN for SOB or wheezing Apixaban (Eliquis) 5 Mg Tablet 1 TAB PO Q12H for 30 Days, #60 TAB 0 Refills Furosemide (Furosemide) 40 Mg Tablet 1 TAB PO DAILY Potassium Chloride (Klor-Con) 10 Meq Tab.prt.sr 1 TAB PO DAILY, TAB Spironolactone (Aldactone) 25 Mg Tablet 12.5 MG PO DAILY@0830 for 30 Days, #15 TAB Discontinued Medications: Carvedilol (Carvedilol) 3.125 Mg Tablet 1 TAB PO Q12H for 30 Days, #60 TAB 0 Refills Empagliflozin (Jardiance) 10 Mg Tablet 1 TAB PO DAILY for 30 Days, #30 TAB 0 Refills Sacubitril/Valsartan (Entresto 24 mg-26 mg Tablet) 24 Mg-26 Mg Tablet 1 TAB PO Q12H for 30 Days, #60 TAB 0 Refills Discharge Summary: HPI: A 59 years old female with a past medical history of CHFrEF 15-20% on 12/09/2024, Atrial fibrillation with rapid ventricular rate on Eliquis and s/p electro-cardioverted, Asymptomatic bacteriuria, chronic Hematuria and Nephrolithiasis, History of DVT and PE, s/p bilateral Total knee replacement surgery presented to the ER for the acute sudden SOB yesterday found to have the uncontrolled HR around 140s as maximum. She noticed that she had an intolerable progressive SOB when she came back from the bathroom. She found herself tachycardia with max HR around 140s with feeling of weakness,dizziness, almost fainted and sweating without having any CP/ pressure and discomfort, and syncope, hemoptysis, orthopnea and PND, bilateral pedal edema, and dropping down of the oxygen. She does not has to use the oxygen at home. She denied any recent viral upper respiratory infection, fever with chills and rigors except for the last month admission for pneumonia. She is having sedentary lifestyle and has to use walker only when she goes outside of the house. She commented that she was very compliance with the medications whatever prescribed by Dr. Galvez. In ER, Dr. Galvez recommended to control her AFib with RVR with a electrocardioversion although her vitals were stable, and she was cardioverted back after that since she is already on the anticoagulation with stable vital signs. Hospital course: 59 years old female patient came to the hospital with chief complaint of shortness of breath. Upon arrival to the emergency department the patient was found with acute decompensation chronic systolic congestive heart failure with an ejection fraction of 15% and AFib with RVR was also evidenced reason for which Cardiology, Dr. Galvez was consulted and cardioversion was performed at the bedside in the emergency department. GDM T was also recommended, and the patient was diuresed with Lasix 40 mg IV twice daily. Due to low blood pressures the patient was started slowly with medication. Carvedilol was converted to metoprolol, spironolactone was continued and Entresto was stopped due to this low blood pressures. The patient was started slowly on lisinopril 2.5 mg which she tolerated well, the patient reported normal bowel movements. The patient remained hemodynamically stable. The patient will be discharged home. Discharge course: The patient remained hemodynamically stable. The patient will be discharged w ith the following instructions: Come back to the emergency department or call 911 if chest pain, shortness of breath, palpitation, fever sensation is evidenced. Take lisinopril 1 tablet of 2.5 mg daily because of your low blood pressure we discontinued your entresto. Take metorpolol 25 mg at nights before bedtime, we are discontinuig carvedilol. Continue Lasix 1 tablet of 40 mg daily. We are discontinuing jardiance. Your new medication will be Farxiga 10 mg 1 tablet daily by cardiology reccomendation. Physical exam: General: Generalized obese, Well alert, well oriented, not confused, not agitated, not in acute distress, well cooperated during the physical. HEENT: Conjunctive are pink, sclerae clear, no icterus, pupil is equal in both sides, reactive to light, no ear discharge, no pharyngeal erythema or an edema. Neck: Supple, no JVD, no lymphadenopathy and thyromegaly. Chest: Equal air entry on both lungs, mild crackles at the level of the bases. Cardiovascular: S1-S2 irregular rhythm and rate, no gallops, no rubs, no murmurs Abdomen: No visible peristalsis, Bowel sounds present on auscultation, soft, nontender, no guarding, no rigidity Extremities: No obvious deformities, no pitting edema bilaterally, capillary refill intact, peripheral pulsations are intact on both sides Central Nervous System: No focal neurological deficits, no motor or sensory weakness in all 4 extremities, could move all 4 extremities, 2+ deep tendon reflexes, negative Babinski. Musculoskeletal: No joint swelling, deformities, inflammations, and no scoliosis and back tenderness Skin: Warm and dry. Vital Signs Date Time Temp Pulse Resp B/P (MAP) Pulse Ox O2 Delivery O2 Flow Rate FiO2 12/30/24 11:21 65 12/30/24 07:36 18 91 Room Air* 0 21 12/30/24 02:00 97.9 101/70 (80) Laboratory Tests Test 12/28/24 19:58 12/29/24 06:19 12/30/24 06:20 Urine Osmolality 488 MOSM/K Urine Random Creatinine 105.0 MG/DL Urine Random Sodium 17 MEQ/L White Blood Count 9.1 X10'3 8.2 X10'3 Red Blood Count 4.52 X10'6 4.61 X10'6 Hemoglobin 12.5 g/dl 12.8 g/dl Hematocrit 38.0 % 38.7 % Mean Corpuscular Volume 84.2 FL 83.9 FL Mean Corpuscular Hemoglobin 27.6 PG 27.7 PG Mean Corpuscular Hemoglobin Concent 32.8 g/dL 33.1 g/dL Red Cell Distribution Width 16.1 % 16.5 % Platelet Count 342 X10'3 376 X10'3 Mean Platelet Volume 8.0 FL 7.4 FL Neutrophils (%) (Auto) 63.0 % 62.9 % Lymphocytes (%) (Auto) 25.3 % 25.2 % Monocytes (%) (Auto) 8.8 % 9.1 % Eosinophils (%) (Auto) 2.1 % 2.1 % Basophils (%) (Auto) 0.8 % 0.7 % Neutrophils # (Auto) 5.7 X10'3 5.2 X10'3 Lymphocytes # (Auto) 2.3 X10'3 2.1 X10'3 Monocytes # (Auto) 0.8 X10'3 0.7 X10'3 Eosinophils # (Auto) 0.2 X10'3 0.2 X10'3 Basophils # (Auto) 0.1 X10'3 0.1 X10'3 CBC Comment Sodium Level 133 MMOL/L 136 MMOL/L Potassium Level 3.8 MMOL/L 3.7 MMOL/L Chloride Level 99 MMOL/L 100 MMOL/L Carbon Dioxide Level 26.0 MMOL/L 29.6 MMOL/L Anion Gap 8 6 Blood Urea Nitrogen 21 MG/DL 20 MG/DL Creatinine 0.95 MG/DL 0.94 MG/DL Estimated GFR/1.73 m2 60 ML/MIN 61 ML/MIN BUN/Creatinine Ratio 22.1 21.3 Glucose Level 97 MG/DL 90 MG/DL Osmolality 284 MOSM/K Calcium Level 8.4 MG/DL 8.7 MG/DL Magnesium Level 2.3 MG/DL 2.1 MG/DL Total Bilirubin 1.4 MG/DL 1.3 MG/DL Aspartate Amino Transf (AST/SGOT) 11 U/L 12 U/L Alanine Aminotransferase (ALT/SGPT) 12 U/L 13 U/L Alkaline Phosphatase 75 IU/L 76 IU/L Total Protein 6.1 G/DL 6.0 G/DL Albumin 3.0 G/DL 3.0 G/DL Globulin 3.1 G/DL 3.0 G/DL Albumin/Globulin Ratio 1.0 1.0 Chemistry Comments Imaging: Chest x-ray: Moderate cardiomegaly with pulmonary vascular congestion. Obscuration of the left hemidiaphragm which may be from overlying cardiac silhouette with underlying pleural effusion/atelectasis/ pneumonia not excluded. *Problems/Diagnosis: (1) Atrial fibrillation with rapid ventricular response Status: Resolved (2) Acute congestive heart failure Status: Acute Total Time Spent on D/C: > 30 Minutes Addendum pt also dced with amio 200 mg po bid for 1 wk followed by 200 mg po qd morbid obesity bmi 51 Date of Service: Dec 30, 2024 Billing Provider: RACHELLE KILPATRICK MD Common Visit Codes: 47621-XTL/OBS DISCH DAY >30min Problem Qualifiers (1) Acute congestive heart failure: Heart failure type: systolic Qualified Codes: I50.21 - Acute systolic (congestive) heart failure MAY LUIS, RES Dec 30, 2024 17:55 RACHELLE KILPATRICK MD Dec 31, 2024 08:17
[2024-12-31] MEDS ORDERED: AMIO200T73 PO (08:15)
== END 2024-12-30 17:20 | disposition home health service (06) | DRG 133 ==
LOC: ER 13:33 → ED HOLD 16:13 → PCU 3S 17:41
PROVIDERS: ADMIT Internal Medicine; ATTEND Internal Medicine
PROC: 5A2204Z Restoration of Cardiac Rhythm, Single (ICD-10-PCS; principal; 2024-12-27)
DX: J96.00 Acute respiratory failure, unspecified whether with hypoxia or hypercapnia (principal); N17.0 Acute kidney failure with tubular necrosis; I50.23 Acute on chronic systolic (congestive) heart failure; I11.0 Hypertensive heart disease with heart failure; I48.91 Unspecified atrial fibrillation; G47.33 Obstructive sleep apnea (adult) (pediatric); E66.01 Morbid (severe) obesity due to excess calories; Z88.0 Allergy status to penicillin; Z79.01 Long term (current) use of anticoagulants; Z68.43 Body mass index [BMI] 50.0-59.9, adult; Z88.1 Allergy status to other antibiotic agents; Z88.2 Allergy status to sulfonamides; Z91.013 Allergy to seafood; Z79.899 Other long term (current) drug therapy; Z86.711 Personal history of pulmonary embolism; Z86.718 Personal history of other venous thrombosis and embolism
CPT/HCPCS: 36415; 71045; 80048; 80053; 80305; 82570; 83735; 83880; 83930; 83935; 84300; 84484; 85025; 85610; 85730; 87081; 93005; 94640; 94660; 94760; 96374; 96375; 97116; 97161; 97530; 99291; G0378; J1938; J3490; J7040